=== PATIENT | female | born 1985 | race Caucasian/White ===

== ENCOUNTER 2016-12-12 15:01 | Observation (INO) | payer OTHER ==
[2016-12-12] MEDS ORDERED: HYDROmorphone 1 MG/ML 1 ML SYRINGE IVP STA (16:23)
[2016-12-12] MEDS ORDERED: SODIUM CHLORIDE 0.9% 1,000 ML IV STA ×2 (16:23)
[2016-12-12] MEDS ORDERED: ONDANSETRON 4 MG/2 ML VIAL IVP STA (16:23)
--- NOTE | 2016-12-12 16:31 | ED ---
General Adult HPI <Asim Hurley - Last Filed: 12/12/16 18:05> - General Source: patient, RN notes reviewed Mode of arrival: ambulatory Limitations: no limitations <Tyrone Samano - Last Filed: 12/12/16 18:09> - General Chief complaint: Abdominal Pain Stated complaint: ulcercollits-oral pain Time Seen by Provider: 12/12/16 16:16 - History of Present Illness Initial comments: Patient is a 31-year-old female with significant past medical history for ulcerative colitis, who presents emergency room today with a chief complaint of abdominal pain over the last 10 days. She does admit the past 3 days the pain has increased. She states it is a little different than typical as it is located on the right side. She states she's feeling the right upper quadrant. She does admit that it's worse after eating. Patient also admits that she's had some numbness to lift her hands bilaterally that she noticed when she lays down over the last 3 days. States this is happening at night which time sleeping. Denies any numbness or tingling at this time. Patient also admits to increased dental pain. She does admit that she has a fractured tooth of tooth #18. She states she does have a wisdom tooth coming in behind and believes that is pushing causing increased pain. Patient denies any other complaints or symptoms at this time. Patient denies any recent fever, chills, shortness of breath, chest pain, back pain, vomiting, numbness or tingling, dysuria or hematuria, constipation or diarrhea, headaches or visual changes, or any other complaints. (Tyrone Samano) - Related Data Home Medications Medication Instructions Recorded Confirmed Bisoprolol-Hctz 5-6.25 mg [Ziac 1 tab PO DAILY 12/12/16 12/12/16 5-6.25] Sertraline HCl [Zoloft] 25 mg PO DAILY 12/12/16 12/12/16 clonazePAM [KlonoPIN] 0.5 mg PO BID PRN 12/12/16 12/12/16 Allergies Allergy/AdvReac Type Severity Reaction Status Date / Time No Known Allergies Allergy Verified 12/12/16 16:33 Review of Systems ROS Other: All systems not noted in ROS Statement are negative. <Asim Hurley - Last Filed: 12/12/16 18:05> ROS Other: All systems not noted in ROS Statement are negative. <Tyrone Samano - Last Filed: 12/12/16 18:09> ROS Statement: Those systems with pertinent positive or pertinent negative responses have been documented in the HPI. Past Medical History Past Medical History: GI Bleed, Hypertension, Syncope Additional Past Medical History / Comment(s): ulcerative colitis, anxiety, uti, History of Any Multi-Drug Resistant Organisms: None Reported Past Surgical History: Adenoidectomy Additional Past Surgical History / Comment(s): COLONOSCOPY , BIRTHMARK REMOVED LT HAND Past Anesthesia/Blood Transfusion Reactions: No Reported Reaction Past Psychological History: ADD/ADHD, Anxiety Additional Psychological History / Comment(s): not presently taking medication for this Smoking Status: Never smoker Past Alcohol Use History: Occasional Additional Past Alcohol Use History / Comment(s): Patient states she is a lifelong nonsmoker. She states she drinks occ on weekends no more than 7 drinks for the week. She is also using multiple different prescription medications but no street drugs currently although she has tried crack in the past. She is currently unemployed.lives with her grandfather. Past Drug Use History: None Reported - Past Family History Father Family Medical History: No Reported History Additional Family Medical History / Comment(s): Father is 50 years of age and healthy. Mother Family Medical History: No Reported History Additional Family Medical History / Comment(s): Mother is 50 years of age and healthy. Patient has 1 brother and 4 sisters that are healthy. <Tyrone Samano - Last Filed: 12/12/16 18:09> General Exam <Asim Hurley - Last Filed: 12/12/16 18:05> Limitations: no limitations <Tyrone Samano - Last Filed: 12/12/16 18:09> - General Exam Comments Initial Comments: General: The patient is awake and alert, in no distress, and does not appear acutely ill. Eye: Pupils are equal, round and reactive to light, extra-ocular movements are intact. No nystagmus. There is normal conjunctiva bilaterally. No signs of icterus. Ears, nose, mouth and throat: There are moist mucous membranes and no oral lesions. Patient does have a fractured tooth of tooth #18. Patient does have was in teeth #17 and pushing through the gumline. Tender to palpation in these areas. No sign of abscess. No drainage or discharge. Neck: The neck is supple, there is no tenderness or JVD. Cardiovascular: There is a regular rate and rhythm. No murmur, rub or gallop is appreciated. Respiratory: Lungs are clear to auscultation, respirations are non-labored, breath sounds are equal. No wheezes, stridor, rales, or rhonchi. Gastrointestinal: Normal appearance of abdomen. Normal bowel sounds. Abdomen soft on palpation. Patient does have tenderness in the right upper quadrant. No rebound tenderness. No guarding. No CVA tenderness. Musculoskeletal: Normal ROM, no tenderness. Strength 5/5. Sensation intact. Pulses equal bilaterally 2+. Neurological: A&O x 3. CN II-XII intact, There are no obvious motor or sensory deficits. Coordination appears grossly intact. Speech is normal. Skin: Skin is warm and dry and no rashes or lesions are noted. Psychiatric: Cooperative, appropriate mood & affect, normal judgment. (Tyrone Samano) Medical Decision Making - Lab Data Result diagrams: 12/12/16 16:55 12/12/16 16:55 <Asim Hurley - Last Filed: 12/12/16 18:05> - Lab Data Result diagrams: 12/12/16 16:55 12/12/16 16:55 <Tyrone Samano - Last Filed: 12/12/16 18:09> - Medical Decision Making Medical decision-making. The patient reports having right upper quadrant pain radiates around the right flank for the past 10 days much worse for the past 3 days. Aggravated by greasy fatty foods. Nausea but no vomiting. She has not noticed any change in the color of her urine or stool. Patient states she's never looked. She is otherwise afebrile. The patient's ultrasound shows a gallbladder before stones and sludge. With the common bile duct dilated to 1.0. The patient's labs show white count 7.5 hemoglobin 14 hematocrit of 43 with a potassium 4.7. BUN 11 creatinine 1.1 the GFR 57. Total bilirubin 0.7. AST ALT are mildly elevated. I examined the patient and she is tender in the right upper quadrant. Positive Forte sign. I discussed the case with Dr. Dr. Dang on-call for Dr. Wolff. Patient be admitted to Dr. Dr. Dang. Dr. Hurley (Asim Hurley) - Lab Data Lab Results 12/12/16 12/12/16 12/12/16 Range/Units 16:55 16:55 17:48 WBC 7.5 (3.8-10.6) k/uL RBC 4.59 (3.80-5.40) m/uL Hgb 14.1 (11.4-16.0) gm/dL Hct 43.6 (34.0-46.0) % MCV 95.0 (80.0-100.0) fL MCH 30.8 (25.0-35.0) pg MCHC 32.4 (31.0-37.0) g/dL RDW 12.3 (11.5-15.5) % Plt Count 284 (150-450) k/uL Neutrophils % 79 % Lymphocytes % 13 % Monocytes % 6 % Eosinophils % 1 % Basophils % 0 % Neutrophils # 5.9 (1.3-7.7) k/uL Lymphocytes # 1.0 (1.0-4.8) k/uL Monocytes # 0.4 (0-1.0) k/uL Eosinophils # 0.1 (0-0.7) k/uL Basophils # 0.0 (0-0.2) k/uL Sodium 139 (137-145) mmol/L Potassium 4.7 (3.5-5.1) mmol/L Chloride 107 (98-107) mmol/L Carbon Dioxide 23 (22-30) mmol/L Anion Gap 9 mmol/L BUN 11 (7-17) mg/dL Creatinine 1.10 H (0.52-1.04) mg/dL Est GFR (MDRD) Af Amer >60 (>60 ml/min/1.73 sqM) Est GFR (MDRD) Non-Af 57 (>60 ml/min/1.73 sqM) Glucose 94 (74-99) mg/dL Calcium 9.8 (8.4-10.2) mg/dL Total Bilirubin 0.5 (0.2-1.3) mg/dL AST 42 H (14-36) U/L ALT 62 H (9-52) U/L Alkaline Phosphatase 75 (38-126) U/L Total Protein 7.1 (6.3-8.2) g/dL Albumin 4.2 (3.5-5.0) g/dL Amylase <30 L (30-110) U/L Lipase 152 (23-300) U/L Urine Color Yellow Urine Appearance Clear (Clear) Urine pH 7.0 (5.0-8.0) Ur Specific [place] 1.010 (1.001-1.035) Urine Protein Negative (Negative) Urine Glucose (UA) Negative (Negative) Urine Ketones Negative (Negative) Urine Blood Negative (Negative) Urine Nitrate Negative (Negative) Urine Bilirubin Negative (Negative) Urine Urobilinogen <2.0 (<2.0) mg/dL Ur Leukocyte Esterase Large H (Negative) Urine RBC <1 (0-5) /hpf Urine WBC 2 (0-5) /hpf Ur Squamous Epith Cells <1 (0-4) /hpf Disposition <Asim Hurley - Last Filed: 12/12/16 18:05> Time of Disposition: 18:09 <Tyrone Samano - Last Filed: 12/12/16 18:09> Clinical Impression: Acute cholecystitis Disposition: ADMITTED IP TO THIS HOSP Condition: Good
[2016-12-12 17:20] LABS: Basophils % (A) 0 %; CH 31.7; CHCM 33.5; Eosinophils # (A) 0.1 k/uL (0-0.7); Eosinophils % (A) 1 %; HCT 43.6 % (34.0-46.0); HDW 2.51; HGB 14.1 gm/dL (11.4-16.0); Luc % (Auto) 1; Lymphocytes % (A) 13 %; MCH 30.8 pg (25.0-35.0); MCHC 32.4 g/dL (31.0-37.0); Monocytes # (A) 0.4 k/uL (0-1.0); Monocytes % (A) 6 %; Neutrophils # (A) 5.9 k/uL (1.3-7.7); Neutrophils % (A) 79 %; RBC 4.59 m/uL (3.80-5.40); RDW 12.3 % (11.5-15.5); WBC 7.5 k/uL (3.8-10.6); WBC (Perox) 7.53
[2016-12-12 17:30] LABS: ALT 62 U/L (9-52); AST 42 U/L (14-36); Alkaline Phosphatase 75 U/L (38-126); Amylase <30 U/L (30-110); Anion Gap 9 mmol/L; Blood Urea Nitrogen 11 mg/dL (7-17); Calcium 9.8 mg/dL (8.4-10.2); Carbon Dioxide 23 mmol/L (22-30); Chloride 107 mmol/L (98-107); Glucose 94 mg/dL (74-99); Non-African American GFR(MDRD) 57 (>60 ml/min/1.73 sqM); Potassium 4.7 mmol/L (3.5-5.1); Sodium 139 mmol/L (137-145); Total Bilirubin 0.5 mg/dL (0.2-1.3); Total Protein 7.1 g/dL (6.3-8.2)
--- NOTE | 2016-12-12 17:44 | XR ---
EXAMINATION TYPE: XR KUB DATE OF EXAM: 12/12/2016 5:20 PM CLINICAL HISTORY: Right upper quadrant pain radiating into right back. TECHNIQUE: 2 upright KUB images of the abdomen are obtained. COMPARISON: Abdominal x-ray March 28, 2016. CT abdomen and pelvis December 14, 2015. Knee FINDINGS: There is some paucity of bowel gas. Visualized gas is noted in nondistended small and larg e bowel loops throughout the abdomen and pelvis. There is no visceromegaly, pneumoperitoneum, or abn ormal calcification appreciated. Small calculi on prior CT are too small to see on plain films. The lung bases are clear and the osseous structures are intact. IMPRESSION: Overall nonspecific strongly favor nonobstructive bowel gas pattern.
--- NOTE | 2016-12-12 17:57 | US ---
EXAMINATION TYPE: US abdomen limited DATE OF EXAM: 12/12/2016 5:38 PM COMPARISON: CT abdomen and pelvis December 14, 2015 CLINICAL HISTORY: Pain. RUQ pain, nausea, loss of appetite EXAM MEASUREMENTS: Liver Length: 15.8 cm Gallbladder Wall: 0.2 cm CBD: 1.0 cm Right Kidney: 9.8 x 4.5 x 4.7 cm TECHNOLOGIST IMPRESSION: Pancreas: obscured by overlying bowel Liver: visualized portions appear wnl Gallbladder: filled with gallstones and sludge Evidence for sonographic Forte's sign: yes CBD: dilated Right Kidney: no evidence of hydronephrosis or mass Pancreas is obscured by overlying bowel gas. Gallbladder has shadowing mobile gallstones as well as h yperechoic material felt to reflect gallbladder sludge redemonstrated. There is no pericholecystic fl uid collection or abnormal gallbladder wall thickening. Common bile duct is dilated but appeared dila len up to [address] IMPRESSION: Gallbladder sludge and gallstones redemonstrated without definitive secondary ultrasound evidence for acute cholecystitis. Inpatient with right upper quadrant pain and sonographic Forte's s ign however it cannot be entirely excluded. Consider further investigation with HIDA scan or surgical exploration. Mild chronic dilatation of common bile duct noted, significance uncertain.
[2016-12-12 17:58] LABS: Appearance,Urine Clear (Clear); Bilirubin,Urine Negative (Negative); Glucose,Urine (UA) Negative (Negative); Ketones,Urine Negative (Negative); Leukocyte Esterase,Urine Large (Negative); Nitrite,Urine Negative (Negative); Particle Count 2145; Protein,Urine Negative (Negative); RBC,Urine <1 /hpf (0-5); Squamous Epithelial Cell,Urine <1 /hpf (0-4); UA Billing (MACRO vs. MICRO) MICRO; Urobilinogen,Urine <2.0 mg/dL (<2.0); WBC,Urine 2 /hpf (0-5)
[2016-12-12] MEDS ORDERED: SODIUM CHLORIDE 0.9% 1,000 ML IV ONE (18:05)
[2016-12-12] MEDS ORDERED: ONDANSETRON 4 MG/2 ML VIAL IVP PRN (18:05)
[2016-12-12] MEDS ORDERED: ACETAMINOPHEN TAB 325 MG TAB PO PRN (18:05)
[2016-12-12] MEDS ORDERED: NALOXONE 0.4 MG/ML 1 ML VIAL IV PRN (18:05)
[2016-12-12] MEDS ORDERED: PIPERACILLIN-TAZOBACTAM 3.375 GM in DEXTROSE/WATER 1 50ML.BAG IVPB STA (18:08)
[2016-12-12] MEDS: HYDROmorphone 1 MG/ML 1 ML SYRINGE IV PRN (20:41)
[2016-12-12 23:22] VITALS: BMI 29.9
[2016-12-12] MEDS: PIPERACILLIN-TAZOBACTAM 3.375 GM in DEXTROSE/WATER 1 50ML.BAG IVPB SCH (23:25)
[2016-12-13] MEDS: HYDROmorphone 1 MG/ML 1 ML SYRINGE IV PRN ×7 (00:13→22:51)
--- NOTE | 2016-12-13 07:26 | P.GSHP ---
History of Present Illness H&P Date: 12/13/16 Chief Complaint: Right upper quadrant abdominal pain The patient is a 30-year-old white female who states she's had some intermittent pain in the upper abdomen mostly right side for about 10 days but worse over the last 3 days. The pain radiates to the back the. Worse after meals especially fried greasy foods. Some nausea. Ultrasound showed multiple gallstones. Positive Forte sign. Past history positive for ulcerative colitis depression anxiety disorder. Medications as listed including antidepressant. No medications for her colitis. Had colonoscopies in the past. Social history patient is single. Lives with grandparents. Drinks alcohol socially 5-7 drinks a week. Denies smoking. ALLERGIES none known. Family history essentially negative. Systems review otherwise negative. Has some dental pain. No cough hemoptysis or chest symptoms. No major change in her bowel habits. No urinary symptoms. No vaginal discharge or bleeding. Findings on examination the patient is well-built well-nourished a little overweight. Vitals and normal temperature is normal. Anicteric hydration borderline. Head and neck are normal. Abdomen abdomen is soft with mild to moderate tenderness in the right upper quadrant with some voluntary guarding but no rebound. No mass or organomegaly noted. Heart regular rhythm no murmurs. Lungs are clear to P&A. Extremities normal. HEALTHCARE REPRESENTATIVE intact. WBC is mildly elevated. Bilirubin in the alkaline phosphatase is normal. Impression acute cholecystitis cholelithiasis. History of ulcerative colitis. Anxiety depression disorder. Recommendation. Recommend laparoscopic cholecystectomy possible open. Informed consent was obtained the procedure having being explained to the patient including potential complication particular bleeding infection surrounding injury pain possibility of open cholecystectomy etc. she understood and agree to proceed. Past Medical History Past Medical History: GI Bleed, Hypertension, Syncope Additional Past Medical History / Comment(s): ulcerative colitis, anxiety, uti, History of Any Multi-Drug Resistant Organisms: C-DIFF Date of last positivie culture/infection: 2003 MDRO Source:: cc Past Surgical History: Adenoidectomy Additional Past Surgical History / Comment(s): COLONOSCOPY- r/t colitis , BIRTHMARK REMOVED LT HAND Past Anesthesia/Blood Transfusion Reactions: No Reported Reaction Past Psychological History: ADD/ADHD, Anxiety Additional Psychological History / Comment(s): not presently taking medication for this Smoking Status: Never smoker Past Alcohol Use History: Occasional Additional Past Alcohol Use History / Comment(s): Patient states she is a lifelong nonsmoker. She states she drinks occ on weekends no more than 7 drinks for the week. She is also using multiple different prescription medications but no street drugs currently although she has tried crack in the past. She is currently unemployed.lives with her grandfather. Past Drug Use History: None Reported - Past Family History Father Family Medical History: No Reported History Additional Family Medical History / Comment(s): Father is 50 years of age and healthy. Mother History Unknown: Yes Family Medical History: No Reported History Additional Family Medical History / Comment(s): Mother is 50 years of age and healthy. Patient has 1 brother and 4 sisters that are healthy. Medications and Allergies Home Medications Medication Instructions Recorded Confirmed Type Bisoprolol-Hctz 5-6.25 mg [Ziac 1 tab PO DAILY 12/12/16 12/12/16 History 5-6.25] Sertraline HCl [Zoloft] 25 mg PO DAILY 12/12/16 12/12/16 History clonazePAM [KlonoPIN] 0.5 mg PO BID PRN 12/12/16 12/12/16 History Allergies Allergy/AdvReac Type Severity Reaction Status Date / Time No Known Allergies Allergy Verified 12/12/16 16:33 Surgical - Exam Vital Signs Temp Pulse Resp BP Pulse Ox 97.9 F 84 18 134/96 99 12/12/16 16:01 12/12/16 16:01 12/12/16 16:01 12/12/16 16:01 12/12/16 16:01 Results - Labs 12/12/16 16:55 12/12/16 16:55
[2016-12-13 07:45] LABS: Basophils % (A) 0 %; CH 30.9; CHCM 32.2; Eosinophils # (A) 0.1 k/uL (0-0.7); Eosinophils % (A) 2 %; HCT 39.6 % (34.0-46.0); HDW 2.46; HGB 12.6 gm/dL (11.4-16.0); Luc # (Auto) 0.14; Luc % (Auto) 2; Lymphocytes # (A) 1.7 k/uL (1.0-4.8); Lymphocytes % (A) 23 %; MCH 30.6 pg (25.0-35.0); MCHC 31.8 g/dL (31.0-37.0); MCV 96.2 fL (80.0-100.0); Mean Platelet Volume 7.1; Monocytes # (A) 0.4 k/uL (0-1.0); Monocytes % (A) 6 %; Neutrophils # (A) 4.9 k/uL (1.3-7.7); Neutrophils % (A) 67 %; RBC 4.12 m/uL (3.80-5.40); RDW 12.1 % (11.5-15.5); WBC 7.2 k/uL (3.8-10.6); WBC (Perox) 7.81
[2016-12-13 07:56] LABS: ALT 55 U/L (9-52); AST 35 U/L (14-36); Alkaline Phosphatase 59 U/L (38-126); Anion Gap 7 mmol/L; Blood Urea Nitrogen 7 mg/dL (7-17); Calcium 8.5 mg/dL (8.4-10.2); Carbon Dioxide 25 mmol/L (22-30); Chloride 108 mmol/L (98-107); Glucose 86 mg/dL (74-99); Non-African American GFR(MDRD) >60 (>60 ml/min/1.73 sqM); Potassium 4.3 mmol/L (3.5-5.1); Sodium 140 mmol/L (137-145); Total Bilirubin 0.5 mg/dL (0.2-1.3); Total Protein 5.9 g/dL (6.3-8.2)
[2016-12-13] MEDS: PIPERACILLIN-TAZOBACTAM 3.375 GM in DEXTROSE/WATER 1 50ML.BAG IVPB SCH ×3 (08:01→23:33)
[2016-12-13] MEDS ORDERED: IV FLUID CONTINUATION 1,000 ML IV ONE (11:19)
[2016-12-13] MEDS ORDERED: DEXAMETHASONE SOD PHOSPHATE 4 MG/ML 1 ML VIAL IV ONE (11:41)
[2016-12-13] MEDS ORDERED: ONDANSETRON 4 MG/2 ML VIAL IVP ONE (11:42)
[2016-12-13] MEDS ORDERED: LIDOCAINE 1% INJ 10MG/ML (20 ML MDV) ONE (12:33)
[2016-12-13] MEDS ORDERED: HYDROmorphone (PF) 1 MG/ML ONE (12:33)
[2016-12-13] MEDS ORDERED: ROCURONIUM BROMIDE 10 MG/ML 10 ML VIAL IV ONE (12:33)
[2016-12-13] MEDS ORDERED: fentaNYL (PF) 50 MCG/ML 2 ML AMP ONE (12:33)
[2016-12-13] MEDS ORDERED: PROPOFOL 10 MG/ML 20 ML VIAL IV ONE (12:33)
[2016-12-13] MEDS ORDERED: NEOSTIGMINE 1 MG/ML 10 ML VIAL ONE (12:33)
[2016-12-13] MEDS ORDERED: KETOROLAC 30 MG/ML 1 ML VIAL ONE (12:33)
[2016-12-13] MEDS ORDERED: GLYCOPYRROLATE 0.2 MG/ML 2 ML VIAL ONE (12:33)
[2016-12-13] MEDS ORDERED: MIDAZOLAM 2 MG/2 ML VIAL ONE (12:33)
[2016-12-13] MEDS ORDERED: SUCCINYLCHOLINE CHLORIDE 100 MG/5 ML SYR IV ONE (12:33)
[2016-12-13] MEDS ORDERED: BUPIVACAINE (PF) 0.25% 30 ML VIAL SQ ONE ×2 (13:05→14:06)
[2016-12-13] MEDS ORDERED: SODIUM CHLORIDE 0.9% 1,000 ML IV ONE (13:08)
--- NOTE | 2016-12-13 14:25 | P.OP ---
Date of Procedure: 12/13/16 Preoperative Diagnosis: Acute cholecystitis cholelithiasis Postoperative Diagnosis: Acute and subacute cholecystitis cholelithiasis Procedure(s) Performed: Laparoscopic cholecystectomy Anesthesia: FRANTZ Surgeon: Aleksey Dang Estimated Blood Loss (ml): 50 Pathology: other (GB) Condition: stable Disposition: PACU Indications for Procedure: The patient is a 31-year-old white female with about 10 day history of persistent pain in the right upper quadrant. She eventually presented to the emergency room last night. The continued pain nausea vomiting and ultrasound evidence of multiple gallstones and a positive Forte sign slightly dilated common bile duct. Bilirubin and alkaline phosphatase however were normal. She was placed on IV antibiotics and laparoscopic cholecystectomy possible open was recommended and informed consent was obtained the procedure having being explained to her including potential complications particular bleeding infection surrounding injury continued pain wound problems etc. she understood and agree to proceed. Operative Findings: Acute and subacute cholecystitis cholelithiasis. Description of Procedure: After induction of general endotracheal anesthesia the abdominal wall was prepped with Betadine and draped. Local anesthetic Marcaine 0.5% plain was infiltrated into the skin and subcutaneous tissue just below the umbilicus where a small transverse incision was made and deepened through the very copious subcutaneous fat. The fascia was exposed infiltrated with the Marcaine and the Veress needle inserted under direct vision with a satisfactory saline drop test. The peritoneal cavity was then inflated with carbon dioxide to pressure approximately 15 mmHg. The needle was replaced with a 10 mm trocar and the laparoscope inserted. 25 mm trochars were placed in the right upper quadrant and another 5 mm trocar in the epigastrium under direct vision. Visual exploration revealed evidence of an acute cholecystitis with the omental adhesion to the gallbladder. The adhesions were lysed away the area of the neck carefully dissected after being retracted. There was subacute inflammation with thickened gallbladder wall. The cystic duct was identified , skeletonized and triply clipped and divided as was the cystic artery and a posterior branch. The gallbladder was then dissected from its bed and removed through the umbilical port site in an Endo Catch bag. There was a large stone impacted in the area of the neck of the gallbladder. Supra and infrahepatic spaces were thoroughly irrigated. A CRESCENCIO drain was placed in Freeman's pouch and brought out through the lateral port site. All trochars were then removed under direct vision CO2 evacuated. Fascial incision at the umbilicus closed with interrupted 0 Vicryl sutures and the skin with 4-0 Monocryl subcuticular sutures and Steri-Strips dressings were applied all counts were correct blood loss was about 50mls at the most. The patient was transferred to the recovery room in good and stable condition.
[2016-12-13] MEDS: HYDROmorphone 1 MG/ML 1 ML SYRINGE IVP ONE ×2 (14:41→14:52)
[2016-12-13 14:43] VITALS: RESP 16
[2016-12-13] MEDS: HYDROcodone/APAP 5-325MG 1 EACH TAB PO PRN (21:51)
[2016-12-14] MEDS: HYDROmorphone 1 MG/ML 1 ML SYRINGE IV PRN ×3 (01:53→09:35)
[2016-12-14] MEDS: HYDROcodone/APAP 5-325MG 1 EACH TAB PO PRN ×3 (03:15→12:04)
[2016-12-14] MEDS: PIPERACILLIN-TAZOBACTAM 3.375 GM in DEXTROSE/WATER 1 50ML.BAG IVPB SCH (07:43)
[2016-12-14 07:49] VITALS: BP 139/90; PULSE 75; TEMP 98.2
--- NOTE | 2016-12-14 10:56 | P.DS ---
Providers Date of admission: 12/12/16 18:42 Expected date of discharge: 12/14/16 Attending physician: Aleksey Dang Primary care physician: Jamel Clayton Patient Condition at Discharge: Good Plan - Discharge Summary New Discharge Prescriptions: Amoxic-Pot Clav 500-125 mg [Augmentin 500-125 mg] 1 tab PO Q12HR #10 tab HYDROcodone/APAP 7.5-325MG [Buckner 7.5-325] 1 tab PO Q4H PRN #20 tab PRN Reason: Pain Discharge Medication List Bisoprolol-Hctz 5-6.25 mg [Ziac 5-6.25] 1 tab PO DAILY 12/12/16 [History] Sertraline HCl [Zoloft] 25 mg PO DAILY 12/12/16 [History] clonazePAM [KlonoPIN] 0.5 mg PO BID PRN 12/12/16 [History] Amoxic-Pot Clav 500-125 mg [Augmentin 500-125 mg] 1 tab PO Q12HR #10 tab [Rx] HYDROcodone/APAP 7.5-325MG [Buckner 7.5-325] 1 tab PO Q4H PRN #20 tab 12/14/16 [Rx ] Follow up Appointment(s)/Referral(s): Aleksey Dang MD [STAFF PHYSICIAN] - 1 Week Jamel Clayton MD [Primary Care Provider] - 1 Week Activity/Diet/Wound Care/Special Instructions: Low fat diet, no heavy lifting X 1 week, may shower.
--- NOTE | 2016-12-14 10:59 | P.PN ---
Progress Note - Text Patient is a day 1 post-laparoscopic cholecystectomy for acute and subacute cholecystitis cholelithiasis. Coming along fairly well. No fever. Tolerated a breakfast. Denies nausea or vomiting. CRESCENCIO drain output is about the 10 amounts the last 8 hours serosanguineous. She is afebrile. Vitals are stable. Abdomen is soft with mild postoperative tenderness. Incisions looked fine. Satisfactory postoperative course. Recommendation DC the CRESCENCIO drain. May shower. We'll discharge her today on by mouth antibiotics namely amoxicillin twice a day and the pain. Return appointment to the office in a week. No heavy lifting or straining per week.
== END 2016-12-14 15:18 | disposition home or self-care (01) ==
LOC: EC 15:01 → INTOOBSV 18:42 → 3SUR 18:42
PROVIDERS: ADMIT Surgery; ATTEND Surgery
DX: K80.00 Calculus of gallbladder with acute cholecystitis without obstruction (principal); K51.90 Ulcerative colitis, unspecified, without complications; I10 Essential (primary) hypertension; F90.9 Attention-deficit hyperactivity disorder, unspecified type; F41.8 Other specified anxiety disorders; F32.9 Major depressive disorder, single episode, unspecified; S02.5XXA Fracture of tooth (traumatic), initial encounter for closed fracture; Z79.899 Other long term (current) drug therapy
CPT/HCPCS: 47562; 99285; 96365; 96375; 96361; 36415; 81025 ×2; 88304; 80053 ×2; 82150; 83690; 85025 ×2; 81001; 74000; 76705; G0378 ×3; J2250; J1100; J2710; J2405 ×2; J2001; J3010; J1885; J1170 ×3; J2543 ×3; J0330; J2704; 96366; 96376

== ENCOUNTER 2016-12-19 10:19 | Emergency (ER) | payer OTHER ==
[2016-12-19] MEDS ORDERED: SODIUM CHLORIDE 0.9% 1,000 ML IV STA (10:53)
[2016-12-19] MEDS ORDERED: ONDANSETRON 4 MG/2 ML VIAL IVP STA (10:54)
[2016-12-19] MEDS ORDERED: HYDROmorphone 1 MG/ML 1 ML SYRINGE IVP STA ×2 (10:54→13:51)
--- NOTE | 2016-12-19 11:19 | ED ---
Abdominal Pain HPI - General Chief Complaint: Abdominal Pain Stated Complaint: post op infection Time Seen by Provider: 12/19/16 10:48 Source: patient, RN notes reviewed Mode of arrival: ambulatory Limitations: no limitations - History of Present Illness Initial Comments: 31-year-old female presents emergency Department with chief complaint of abdominal pain. Patient states she is status post cholecystectomy by Dr. Walton last Tuesday or Tuesday. Patient states that she that she was is having healing pain but states pain is worse and states that now she has shortness of breath. She states it hurts to take a deep breath in her abdomen slightly into her chest. Patient denies any palpitations. Patient denies fever, chills. She states she's had some ongoing nausea. Patient was discharged with pain medication states it is helping some. - Related Data Home Medications Medication Instructions Recorded Confirmed Bisoprolol-Hctz 5-6.25 mg [Ziac 1 tab PO DAILY 12/12/16 12/19/16 5-6.25] Sertraline HCl [Zoloft] 25 mg PO DAILY 12/12/16 12/19/16 clonazePAM [KlonoPIN] 0.5 mg PO BID PRN 12/12/16 12/19/16 Balsalazide Disodium [Colazal] 2,250 mg PO AC-TID 12/19/16 12/19/16 Previous Rx's Medication Instructions Recorded Amoxic-Pot Clav 500-125 mg 1 tab PO Q12HR #10 tab 12/14/16 [Augmentin 500-125 mg] HYDROcodone/APAP 7.5-325MG [[place] 1 tab PO Q4H PRN #20 tab 12/14/16 7.5-325] Hydrocodone/Acetaminophen [[place] 1 tab PO Q6HR PRN #10 tab 12/19/16 5-325] Allergies Allergy/AdvReac Type Severity Reaction Status Date / Time No Known Allergies Allergy Verified 12/19/16 11:17 Review of Systems ROS Statement: Those systems with pertinent positive or pertinent negative responses have been documented in the HPI. ROS Other: All systems not noted in ROS Statement are negative. Past Medical History Past Medical History: GI Bleed, Hypertension, Syncope Additional Past Medical History / Comment(s): ulcerative colitis, anxiety, uti, History of Any Multi-Drug Resistant Organisms: None Reported Date of last positivie culture/infection: none MDRO Source:: none Past Surgical History: Adenoidectomy, Cholecystectomy Additional Past Surgical History / Comment(s): COLONOSCOPY- r/t colitis , [facility] REMOVED LT HAND Past Anesthesia/Blood Transfusion Reactions: No Reported Reaction Past Psychological History: ADD/ADHD, Anxiety Additional Psychological History / Comment(s): not presently taking medication for this Smoking Status: Never smoker Past Alcohol Use History: Occasional Additional Past Alcohol Use History / Comment(s): Patient states she is a lifelong nonsmoker. She states she drinks occ on weekends no more than 7 drinks for the week. She is also using multiple different prescription medications but no street drugs currently although she has tried crack in the past. She is currently unemployed.lives with her grandfather. Past Drug Use History: None Reported - Past Family History Father Family Medical History: No Reported History Additional Family Medical History / Comment(s): Father is 50 years of age and healthy. Mother History Unknown: Yes Family Medical History: No Reported History Additional Family Medical History / Comment(s): Mother is 50 years of age and healthy. Patient has 1 brother and 4 sisters that are healthy. General Exam Limitations: no limitations General appearance: alert, in no apparent distress Head exam: Present: atraumatic, normocephalic, normal inspection Neck exam: Present: normal inspection. Absent: tenderness, meningismus, lymphadenopathy Respiratory exam: Present: normal lung sounds bilaterally. Absent: respiratory distress, wheezes, rales, rhonchi, stridor Cardiovascular Exam: Present: regular rate, normal rhythm, normal heart sounds. Absent: systolic murmur, diastolic murmur, rubs, gallop, clicks GI/Abdominal exam: Present: soft, tenderness (Moderate quadrant tenderness, incisions are healing well with no erythema no apparent drainage), normal bowel sounds. Absent: distended, guarding, rebound, rigid Back exam: Absent: CVA tenderness (R), CVA tenderness (L) Skin exam: Present: warm, dry, intact, normal color. Absent: rash Course Vital Signs 12/19/16 12/19/16 10:41 11:23 Temperature 99.3 F Pulse Rate 107 H Respiratory 17 18 Rate Blood Pressure 143/86 O2 Sat by Pulse 99 Oximetry Medical Decision Making - Medical Decision Making 31-year-old female presented emergency department for abdominal pain. Status post cholecystomy. Patient has reactive colitis. Patient has negative CT of the chest for PE. Patient will be discharged with pain medication advised to see Dr. Dang in one to 2 days. - Lab Data Result diagrams: 12/19/16 11:30 12/19/16 11:30 Lab Results 12/19/16 12/19/16 12/19/16 Range/Units 11:30 11:30 11:30 WBC 6.0 (3.8-10.6) k/uL RBC 4.58 (3.80-5.40) m/uL Hgb 14.1 (11.4-16.0) gm/dL Hct 42.9 (34.0-46.0) % MCV 93.7 (80.0-100.0) fL MCH 30.8 (25.0-35.0) pg MCHC 32.9 (31.0-37.0) g/dL RDW 12.1 (11.5-15.5) % Plt Count 335 (150-450) k/uL Neutrophils % 75 % Lymphocytes % 16 % Monocytes % 6 % Eosinophils % 2 % Basophils % 0 % Neutrophils # 4.5 (1.3-7.7) k/uL Lymphocytes # 0.9 L (1.0-4.8) k/uL Monocytes # 0.4 (0-1.0) k/uL Eosinophils # 0.1 (0-0.7) k/uL Basophils # 0.0 (0-0.2) k/uL D-Dimer 2.29 H (<0.60) mg/L FEU Sodium 142 (137-145) mmol/L Potassium 3.9 (3.5-5.1) mmol/L Chloride 106 (98-107) mmol/L Carbon Dioxide 25 (22-30) mmol/L Anion Gap 11 mmol/L BUN 5 L (7-17) mg/dL Creatinine 0.90 (0.52-1.04) mg/dL Est GFR (MDRD) Af Amer >60 (>60 ml/min/1.73 sqM) Est GFR (MDRD) Non-Af >60 (>60 ml/min/1.73 sqM) Glucose 103 H (74-99) mg/dL Calcium 9.8 (8.4-10.2) mg/dL Total Bilirubin 0.7 (0.2-1.3) mg/dL AST 24 (14-36) U/L ALT 46 (9-52) U/L Alkaline Phosphatase 80 (38-126) U/L Total Protein 7.5 (6.3-8.2) g/dL Albumin 4.3 (3.5-5.0) g/dL Amylase 32 (30-110) U/L Lipase 151 (23-300) U/L Urine Color Urine Appearance (Clear) Urine pH (5.0-8.0) Ur Specific [place] (1.001-1.035) Urine Protein (Negative) Urine Glucose (UA) (Negative) Urine Ketones (Negative) Urine Blood (Negative) Urine Nitrate (Negative) Urine Bilirubin (Negative) Urine Urobilinogen (<2.0) mg/dL Ur Leukocyte Esterase (Negative) Urine RBC (0-5) /hpf Urine WBC (0-5) /hpf Ur Squamous Epith Cells (0-4) /hpf Urine Mucus (None) /hpf Urine HCG, Qual (Not Detectd) 12/19/16 12/19/16 Range/Units 11:35 11:35 WBC (3.8-10.6) k/uL RBC (3.80-5.40) m/uL Hgb (11.4-16.0) gm/dL Hct (34.0-46.0) % MCV (80.0-100.0) fL MCH (25.0-35.0) pg MCHC (31.0-37.0) g/dL RDW (11.5-15.5) % Plt Count (150-450) k/uL Neutrophils % % Lymphocytes % % Monocytes % % Eosinophils % % Basophils % % Neutrophils # (1.3-7.7) k/uL Lymphocytes # (1.0-4.8) k/uL Monocytes # (0-1.0) k/uL Eosinophils # (0-0.7) k/uL Basophils # (0-0.2) k/uL D-Dimer (<0.60) mg/L FEU Sodium (137-145) mmol/L Potassium (3.5-5.1) mmol/L Chloride (98-107) mmol/L Carbon Dioxide (22-30) mmol/L Anion Gap mmol/L BUN (7-17) mg/dL Creatinine (0.52-1.04) mg/dL Est GFR (MDRD) Af Amer (>60 ml/min/1.73 sqM) Est GFR (MDRD) Non-Af (>60 ml/min/1.73 sqM) Glucose (74-99) mg/dL Calcium (8.4-10.2) mg/dL Total Bilirubin (0.2-1.3) mg/dL AST (14-36) U/L ALT (9-52) U/L Alkaline Phosphatase (38-126) U/L Total Protein (6.3-8.2) g/dL Albumin (3.5-5.0) g/dL Amylase (30-110) U/L Lipase (23-300) U/L Urine Color Yellow Urine Appearance Clear (Clear) Urine pH 5.5 (5.0-8.0) Ur Specific [place] 1.011 (1.001-1.035) Urine Protein Negative (Negative) Urine Glucose (UA) Negative (Negative) Urine Ketones Negative (Negative) Urine Blood Moderate H (Negative) Urine Nitrate Negative (Negative) Urine Bilirubin Negative (Negative) Urine Urobilinogen <2.0 (<2.0) mg/dL Ur Leukocyte Esterase Large H (Negative) Urine RBC 3 (0-5) /hpf Urine WBC 4 (0-5) /hpf Ur Squamous Epith Cells 3 (0-4) /hpf Urine Mucus Rare H (None) /hpf Urine HCG, Qual Not Detected (Not Detectd) Disposition Clinical Impression: Colitis, Abdominal pain Disposition: ADMITTED IP TO THIS HOSP Condition: Stable Instructions: Abdominal Pain (ED) Additional Instructions: Please return to the Emergency Department if symptoms worsen or any other concerns. Prescriptions: Hydrocodone/Acetaminophen [[place] 5-325] 1 tab PO Q6HR PRN #10 tab PRN Reason: Pain Time of Disposition: 14:11
[2016-12-19 11:39] LABS: Basophils % (A) 0 %; CH 31.2; CHCM 33.4; Eosinophils # (A) 0.1 k/uL (0-0.7); Eosinophils % (A) 2 %; HCT 42.9 % (34.0-46.0); HGB 14.1 gm/dL (11.4-16.0); Luc % (Auto) 2; Lymphocytes # (A) 0.9 k/uL (1.0-4.8); Lymphocytes % (A) 16 %; MCH 30.8 pg (25.0-35.0); MCHC 32.9 g/dL (31.0-37.0); MCV 93.7 fL (80.0-100.0); Monocytes # (A) 0.4 k/uL (0-1.0); Monocytes % (A) 6 %; Neutrophils # (A) 4.5 k/uL (1.3-7.7); Neutrophils % (A) 75 %; RBC 4.58 m/uL (3.80-5.40); RDW 12.1 % (11.5-15.5); WBC (Perox) 6.23
[2016-12-19 11:49] LABS: ALT 46 U/L (9-52); AST 24 U/L (14-36); Alkaline Phosphatase 80 U/L (38-126); Amylase 32 U/L (30-110); Anion Gap 11 mmol/L; Blood Urea Nitrogen 5 mg/dL (7-17); Calcium 9.8 mg/dL (8.4-10.2); Carbon Dioxide 25 mmol/L (22-30); Chloride 106 mmol/L (98-107); Glucose 103 mg/dL (74-99); Non-African American GFR(MDRD) >60 (>60 ml/min/1.73 sqM); Potassium 3.9 mmol/L (3.5-5.1); Sodium 142 mmol/L (137-145); Total Bilirubin 0.7 mg/dL (0.2-1.3); Total Protein 7.5 g/dL (6.3-8.2)
[2016-12-19 11:52] LABS: Appearance,Urine Clear (Clear); Bilirubin,Urine Negative (Negative); Glucose,Urine (UA) Negative (Negative); Ketones,Urine Negative (Negative); Leukocyte Esterase,Urine Large (Negative); Mucus,Urine Rare /hpf; Nitrite,Urine Negative (Negative); PH, Urine 5.5 (5.0-8.0); Particle Count 3300; Protein,Urine Negative (Negative); RBC,Urine 3 /hpf (0-5); Specific Gravity,Urine 1.011 (1.001-1.035); Squamous Epithelial Cell,Urine 3 /hpf (0-4); UA Billing (MACRO vs. MICRO) MICRO; Urobilinogen,Urine <2.0 mg/dL (<2.0); WBC,Urine 4 /hpf (0-5)
[2016-12-19] MEDS ORDERED: RX INFO: IV CONTRAST WAS GIVEN 1 EACH MISC MISCELLANE PRN (12:01)
--- NOTE | 2016-12-19 13:48 | CT ---
INDICATION: Pain TECHNIQUE: Multiple, contiguous 2.5 mm axial cuts of the chest are obtained following the administration of IV contrast. High resolution axial image as well as, sagittal and coronal reformatted images are available. COMPARISON: None FINDINGS: No pulmonary embolus is identified. The aorta is within normal limits, no aneurysm or dissection. The cardiomediastinal structures are normal. No adenopathy or effusions. Mild bilateral lower lobe subsegmental atelectasis. Otherwise, the lungs are clear. The osseous structures are unremarkable. IMPRESSION: No evidence of pulmonary embolus. CTDI: 11.5 mGy DLP: 332.6 mGycm
--- NOTE | 2016-12-19 14:04 | CT ---
ADDENDUM - Added by Irving Palumbo M.D. on 12/19/2016 2:19 PM (-08:00) CTDI: 18.5 mGy DLP: 1002.5 mGycm INDICATION: Pain TECHNIQUE: Multiple, contiguous axial cuts of the abdomen and pelvis are obtained from the lung bases to the ischial tuberosities. Sagittal and coronal reformatted images are available. COMPARISON: CT dated 12/14/15 FINDINGS: The lung bases are clear. The liver and spleen are normal in size and free of mass lesions. Status post cholecystectomy with fluid seen at the gallbladder fossa, no organized fluid collection. The bile ducts and pancreas are normal. The adrenal gland are unremarkable. 2-3 mm nonobstructing left renal pyramidal calcification. The kidneys are normal in size and contour. No lesions or hydronephrosis. Thickening of the ascending colon and proximal transverse colon may represent reactive colitis. The appendix is unremarkable, as is the rest of the GI tract. Aorta is normal caliber. No adenopathy or extraluminal air. Degenerative changes of the lumbar spine. The osseous structures are otherwise normal. IMPRESSION: 1. Thickening of the ascending colon and proximal transverse colon may represent reactive colitis. Status post cholecystectomy with fluid seen at the gallbladder fossa, no organized fluid collection. 2. 2-3 mm nonobstructing left renal pyramidal calcification. Critical Value Communications 12/19/16 13:54 Call Doctor Regarding Other, called JENNIFER Billy in ER on 12/19 13:53 (-05:00)
[2016-12-19 14:24] VITALS: BP 145/89; PULSE 83; RESP 16; TEMP 97.6
--- NOTE | 2016-12-19 14:25 | ED ---
Medical Decision Making - Lab Data Result diagrams: 12/19/16 11:30 12/19/16 11:30 Lab Results 12/19/16 12/19/16 12/19/16 Range/Units 11:30 11:30 11:30 WBC 6.0 (3.8-10.6) k/uL RBC 4.58 (3.80-5.40) m/uL Hgb 14.1 (11.4-16.0) gm/dL Hct 42.9 (34.0-46.0) % MCV 93.7 (80.0-100.0) fL MCH 30.8 (25.0-35.0) pg MCHC 32.9 (31.0-37.0) g/dL RDW 12.1 (11.5-15.5) % Plt Count 335 (150-450) k/uL Neutrophils % 75 % Lymphocytes % 16 % Monocytes % 6 % Eosinophils % 2 % Basophils % 0 % Neutrophils # 4.5 (1.3-7.7) k/uL Lymphocytes # 0.9 L (1.0-4.8) k/uL Monocytes # 0.4 (0-1.0) k/uL Eosinophils # 0.1 (0-0.7) k/uL Basophils # 0.0 (0-0.2) k/uL D-Dimer 2.29 H (<0.60) mg/L FEU Sodium 142 (137-145) mmol/L Potassium 3.9 (3.5-5.1) mmol/L Chloride 106 (98-107) mmol/L Carbon Dioxide 25 (22-30) mmol/L Anion Gap 11 mmol/L BUN 5 L (7-17) mg/dL Creatinine 0.90 (0.52-1.04) mg/dL Est GFR (MDRD) Af Amer >60 (>60 ml/min/1.73 sqM) Est GFR (MDRD) Non-Af >60 (>60 ml/min/1.73 sqM) Glucose 103 H (74-99) mg/dL Calcium 9.8 (8.4-10.2) mg/dL Total Bilirubin 0.7 (0.2-1.3) mg/dL AST 24 (14-36) U/L ALT 46 (9-52) U/L Alkaline Phosphatase 80 (38-126) U/L Total Protein 7.5 (6.3-8.2) g/dL Albumin 4.3 (3.5-5.0) g/dL Amylase 32 (30-110) U/L Lipase 151 (23-300) U/L Urine Color Urine Appearance (Clear) Urine pH (5.0-8.0) Ur Specific [place] (1.001-1.035) Urine Protein (Negative) Urine Glucose (UA) (Negative) Urine Ketones (Negative) Urine Blood (Negative) Urine Nitrate (Negative) Urine Bilirubin (Negative) Urine Urobilinogen (<2.0) mg/dL Ur Leukocyte Esterase (Negative) Urine RBC (0-5) /hpf Urine WBC (0-5) /hpf Ur Squamous Epith Cells (0-4) /hpf Urine Mucus (None) /hpf Urine HCG, Qual (Not Detectd) 12/19/16 12/19/16 Range/Units 11:35 11:35 WBC (3.8-10.6) k/uL RBC (3.80-5.40) m/uL Hgb (11.4-16.0) gm/dL Hct (34.0-46.0) % MCV (80.0-100.0) fL MCH (25.0-35.0) pg MCHC (31.0-37.0) g/dL RDW (11.5-15.5) % Plt Count (150-450) k/uL Neutrophils % % Lymphocytes % % Monocytes % % Eosinophils % % Basophils % % Neutrophils # (1.3-7.7) k/uL Lymphocytes # (1.0-4.8) k/uL Monocytes # (0-1.0) k/uL Eosinophils # (0-0.7) k/uL Basophils # (0-0.2) k/uL D-Dimer (<0.60) mg/L FEU Sodium (137-145) mmol/L Potassium (3.5-5.1) mmol/L Chloride (98-107) mmol/L Carbon Dioxide (22-30) mmol/L Anion Gap mmol/L BUN (7-17) mg/dL Creatinine (0.52-1.04) mg/dL Est GFR (MDRD) Af Amer (>60 ml/min/1.73 sqM) Est GFR (MDRD) Non-Af (>60 ml/min/1.73 sqM) Glucose (74-99) mg/dL Calcium (8.4-10.2) mg/dL Total Bilirubin (0.2-1.3) mg/dL AST (14-36) U/L ALT (9-52) U/L Alkaline Phosphatase (38-126) U/L Total Protein (6.3-8.2) g/dL Albumin (3.5-5.0) g/dL Amylase (30-110) U/L Lipase (23-300) U/L Urine Color Yellow Urine Appearance Clear (Clear) Urine pH 5.5 (5.0-8.0) Ur Specific [place] 1.011 (1.001-1.035) Urine Protein Negative (Negative) Urine Glucose (UA) Negative (Negative) Urine Ketones Negative (Negative) Urine Blood Moderate H (Negative) Urine Nitrate Negative (Negative) Urine Bilirubin Negative (Negative) Urine Urobilinogen <2.0 (<2.0) mg/dL Ur Leukocyte Esterase Large H (Negative) Urine RBC 3 (0-5) /hpf Urine WBC 4 (0-5) /hpf Ur Squamous Epith Cells 3 (0-4) /hpf Urine Mucus Rare H (None) /hpf Urine HCG, Qual Not Detected (Not Detectd) Disposition Clinical Impression: Colitis, Abdominal pain Disposition: HOME SELF-CARE Condition: Stable Instructions: Abdominal Pain (ED) Additional Instructions: Please return to the Emergency Department if symptoms worsen or any other concerns. Prescriptions: Hydrocodone/Acetaminophen [[place] 5-325] 1 tab PO Q6HR PRN #10 tab PRN Reason: Pain Referrals: Jamel Clayton MD [Primary Care Provider] - 1-2 days
== END 2016-12-19 14:47 | disposition home or self-care (01) ==
LOC: EC 10:19
DX: K52.9 Noninfective gastroenteritis and colitis, unspecified (principal); I10 Essential (primary) hypertension; F41.9 Anxiety disorder, unspecified; Z90.49 Acquired absence of other specified parts of digestive tract
CPT/HCPCS: 36415; 85379; 80053; 82150; 83690; 85025; 81001; 81025; 87040; 71275; 74177; 96374; 96375; 96376; 96361 ×2; 99284; Q9967; J2405; J1170

== ENCOUNTER → 2016-12-24 | Outpatient (CLI) | payer OTHER ==
[2016-12-24 11:25] LABS: EKG EKG PERFORMED
[2016-12-24 11:46] LABS: Basophils % (A) 1 %; CH 30.8; CHCM 32.5; Eosinophils # (A) 0.3 k/uL (0-0.7); Eosinophils % (A) 4 %; HCT 43.2 % (34.0-46.0); HDW 2.43; HGB 13.7 gm/dL (11.4-16.0); Luc # (Auto) 0.15; Luc % (Auto) 2; Lymphocytes # (A) 1.4 k/uL (1.0-4.8); Lymphocytes % (A) 22 %; MCH 30.1 pg (25.0-35.0); MCHC 31.7 g/dL (31.0-37.0); Mean Platelet Volume 6.8; Monocytes # (A) 0.4 k/uL (0-1.0); Monocytes % (A) 6 %; Neutrophils # (A) 4.2 k/uL (1.3-7.7); Neutrophils % (A) 65 %; RBC 4.55 m/uL (3.80-5.40); RDW 12.1 % (11.5-15.5); WBC 6.5 k/uL (3.8-10.6); WBC (Perox) 6.96
[2016-12-24 12:15] LABS: ALT 34 U/L (9-52); AST 21 U/L (14-36); Alkaline Phosphatase 67 U/L (38-126); Anion Gap 11 mmol/L; Blood Urea Nitrogen 10 mg/dL (7-17); Calcium 9.8 mg/dL (8.4-10.2); Carbon Dioxide 27 mmol/L (22-30); Chloride 103 mmol/L (98-107); Glucose 97 mg/dL (74-99); Non-African American GFR(MDRD) >60 (>60 ml/min/1.73 sqM); Potassium 3.9 mmol/L (3.5-5.1); Sodium 141 mmol/L (137-145); Total Bilirubin 0.5 mg/dL (0.2-1.3); Total Protein 7.2 g/dL (6.3-8.2)
== END | disposition home or self-care (01) ==
LOC: LABWHC1 11:17
PROVIDERS: ATTEND Family Medicine
DX: I10 Essential (primary) hypertension (principal); F90.9 Attention-deficit hyperactivity disorder, unspecified type
CPT/HCPCS: 36415; 80053; 82390; 84443; 85025; 93005

== ENCOUNTER 2017-01-07 17:08 | Inpatient (IN) | payer OTHER ==
[2017-01-07] MEDS ORDERED: ONDANSETRON 4 MG/2 ML VIAL IVP STA (18:17)
[2017-01-07] MEDS ORDERED: SODIUM CHLORIDE 0.9% 1,000 ML IV STA ×2 (18:17)
[2017-01-07] MEDS ORDERED: HYDROmorphone 1 MG/ML 1 ML SYRINGE IVP STA (18:17)
--- NOTE | 2017-01-07 18:21 | ED ---
General Adult HPI - General Source: patient, RN notes reviewed Mode of arrival: ambulatory Limitations: no limitations <Tyrone Samano - Last Filed: 01/07/17 19:54> <Asim Hurley - Last Filed: 01/07/17 22:01> - General Chief complaint: Abdominal Pain Stated complaint: ABDOMINAL PAIN Time Seen by Provider: 01/07/17 18:09 - History of Present Illness Initial comments: Patient 31-year-old female status post cholecystectomy 3 weeks, who presents emergency room today with chief complaint of increased right upper quadrant pain. Does admit that the pain is worse over the last 2 days. States it was coming and going prior. Patient does admit that it's worse than what was previous surgery. She does admit that it's worse with deep inspiration. She does admit that she does feel short of breath at times. Admits to nausea. She denies any other complaints or symptoms. Patient denies any recent fever, chills , chest pain, back pain, vomiting, numbness or tingling, dysuria or hematuria, constipation or diarrhea, headaches or visual changes, or any other complaints. (Tyrone Samano) - Related Data Home Medications Medication Instructions Recorded Confirmed Bisoprolol-Hctz 5-6.25 mg [Ziac 1 tab PO DAILY 12/12/16 01/07/17 5-6.25] Sertraline HCl [Zoloft] 25 mg PO DAILY 12/12/16 01/07/17 clonazePAM [KlonoPIN] 0.5 mg PO BID PRN 12/12/16 01/07/17 Balsalazide Disodium [Colazal] 2,250 mg PO AC-TID 12/19/16 01/07/17 Dextroamphetamine/Amphetamine 20 mg PO QAM 01/07/17 01/07/17 [Adderall Xr] Allergies Allergy/AdvReac Type Severity Reaction Status Date / Time No Known Allergies Allergy Verified 01/07/17 18:41 Review of Systems ROS Other: All systems not noted in ROS Statement are negative. <Tyrone Samano - Last Filed: 01/07/17 19:54> ROS Other: All systems not noted in ROS Statement are negative. <Asim Hurley - Last Filed: 01/07/17 22:01> ROS Statement: Those systems with pertinent positive or pertinent negative responses have been documented in the HPI. Past Medical History Past Medical History: GI Bleed, Hypertension, Syncope Additional Past Medical History / Comment(s): ulcerative colitis, anxiety, uti, History of Any Multi-Drug Resistant Organisms: None Reported Date of last positivie culture/infection: none MDRO Source:: none Past Surgical History: Adenoidectomy, Cholecystectomy Additional Past Surgical History / Comment(s): COLONOSCOPY- r/t colitis , BIRTHMARK REMOVED LT HAND Past Anesthesia/Blood Transfusion Reactions: No Reported Reaction Past Psychological History: ADD/ADHD, Anxiety Additional Psychological History / Comment(s): not presently taking medication for this Smoking Status: Never smoker Past Alcohol Use History: Occasional Additional Past Alcohol Use History / Comment(s): Patient states she is a lifelong nonsmoker. She states she drinks occ on weekends no more than 7 drinks for the week. She is also using multiple different prescription medications but no street drugs currently although she has tried crack in the past. She is currently unemployed.lives with her grandfather. Past Drug Use History: None Reported - Past Family History Father Family Medical History: No Reported History Additional Family Medical History / Comment(s): Father is 50 years of age and healthy. Mother History Unknown: Yes Family Medical History: No Reported History Additional Family Medical History / Comment(s): Mother is 50 years of age and healthy. Patient has 1 brother and 4 sisters that are healthy. <Tyrone Samano - Last Filed: 01/07/17 19:54> General Exam Limitations: no limitations <Tyrone Samano - Last Filed: 01/07/17 19:54> <Asim Hurley - Last Filed: 01/07/17 22:01> - General Exam Comments Initial Comments: General: The patient is awake and alert, mild distress Eye: Pupils are equal, round and reactive to light, extra-ocular movements are intact. No nystagmus. There is normal conjunctiva bilaterally. No signs of icterus. Ears, nose, mouth and throat: There are moist mucous membranes and no oral lesions. Neck: The neck is supple, there is no tenderness or JVD. Cardiovascular: There is a regular rate and rhythm. No murmur, rub or gallop is appreciated. Respiratory: Lungs are clear to auscultation, respirations are non-labored, breath sounds are equal. No wheezes, stridor, rales, or rhonchi. Gastrointestinal: Normal. His abdomen. Normal bowel sounds. Soft on palpation. Patient's incisions healing well. Patient does have mild tenderness right upper quadrant. No rebound tenderness. No CVA tenderness. Musculoskeletal: Normal ROM, no tenderness. Strength 5/5. Sensation intact. Pulses equal bilaterally 2+. Neurological: A&O x 3. CN II-XII intact, There are no obvious motor or sensory deficits. Coordination appears grossly intact. Speech is normal. Skin: Skin is warm and dry and no rashes or lesions are noted. Psychiatric: Cooperative, appropriate mood & affect, normal judgment. (Tyrone Samano) Course <Tyrone Samano - Last Filed: 01/07/17 19:54> <Asim Hurley - Last Filed: 01/07/17 22:01> Vital Signs 01/07/17 17:26 Temperature 98.0 F Pulse Rate 108 H Respiratory 18 Rate Blood Pressure 149/105 O2 Sat by Pulse 99 Oximetry - Reevaluation(s) Reevaluation #1: 01/07/17 19:54 Case discussion and signed out to attending physician Dr. Hurley at this time. Patient's CT currently pending. (Tyrone Samano) Medical Decision Making - Lab Data Result diagrams: 01/07/17 18:37 01/07/17 19:25 <Tyrone Samano - Last Filed: 01/07/17 19:54> - Lab Data Result diagrams: 01/07/17 18:37 01/07/17 19:25 <Asim Hurley - Last Filed: 01/07/17 22:01> - Medical Decision Making Medical decision-making. The patient's white count 10.8 hemoglobin 14 hematocrit 44, potassium is 4.4 with a BUN 9 creatinine 0.77 GFR greater than 60. Glucose is 90. Urine shows positive urinary tract infection test is negative. The patient's d-dimer is mildly elevated 0.79. Patient had x-rays of the abdomen reviewed by radiologist's his final impression is nonacute abdomen. No adverse change compared to old exam. As read by Dr. Franklin Patient also a CT of the chest and abdomen. The radiologist's final impression is normal computed tomography scan of the chest. Negative computed tomography scan of the abdomen and pelvis. Bilateral ovarian cyst. There is a clearing of the inflammatory change of the right: Compared to old exam. As read by Dr. Franklin Case discussed Dr. Dr. Dang he okays patient be admitted the hospital for observation and IV hydration and treatment for urinary tract infection at this time. Case discussed with Dr. Ga on-call for for Dr. Dr. Dang , she feels is more of a medical admit, she will consult. But wants the patient admitted to medicine. Patient was started on Levaquin for urinary tract infection. (Asim Hurley) - Lab Data Lab Results 01/07/17 01/07/17 01/07/17 Range/Units 18:37 18:37 19:01 WBC 10.8 H (3.8-10.6) k/uL RBC 4.86 (3.80-5.40) m/uL Hgb 14.7 (11.4-16.0) gm/dL Hct 44.7 (34.0-46.0) % MCV 92.2 (80.0-100.0) fL MCH 30.2 (25.0-35.0) pg MCHC 32.8 (31.0-37.0) g/dL RDW 12.0 (11.5-15.5) % Plt Count 337 (150-450) k/uL Neutrophils % 72 % Lymphocytes % 17 % Monocytes % 6 % Eosinophils % 2 % Basophils % 0 % Neutrophils # 7.8 H (1.3-7.7) k/uL Lymphocytes # 1.9 (1.0-4.8) k/uL Monocytes # 0.6 (0-1.0) k/uL Eosinophils # 0.3 (0-0.7) k/uL Basophils # 0.0 (0-0.2) k/uL D-Dimer 0.79 H (<0.60) mg/L FEU Sodium (137-145) mmol/L Potassium (3.5-5.1) mmol/L Chloride (98-107) mmol/L Carbon Dioxide (22-30) mmol/L Anion Gap mmol/L BUN (7-17) mg/dL Creatinine (0.52-1.04) mg/dL Est GFR (MDRD) Af Amer (>60 ml/min/1.73 sqM) Est GFR (MDRD) Non-Af (>60 ml/min/1.73 sqM) Glucose (74-99) mg/dL Calcium (8.4-10.2) mg/dL Total Bilirubin (0.2-1.3) mg/dL AST (14-36) U/L ALT (9-52) U/L Alkaline Phosphatase (38-126) U/L Total Protein (6.3-8.2) g/dL Albumin (3.5-5.0) g/dL Amylase (30-110) U/L Lipase (23-300) U/L Urine Color Urine Appearance (Clear) Urine pH (5.0-8.0) Ur Specific [place] (1.001-1.035) Urine Protein (Negative) Urine Glucose (UA) (Negative) Urine Ketones (Negative) Urine Blood (Negative) Urine Nitrite (Negative) Urine Bilirubin (Negative) Urine Urobilinogen (<2.0) mg/dL Ur Leukocyte Esterase (Negative) Urine RBC (0-5) /hpf Urine WBC (0-5) /hpf Ur Squamous Epith Cells (0-4) /hpf Urine Bacteria (None) /hpf Urine Mucus (None) /hpf Urine Yeast (Budding) (None) /hpf Urine HCG, Qual Not Detected (Not Detectd) 01/07/17 01/07/17 Range/Units 19:01 19:25 WBC (3.8-10.6) k/uL RBC (3.80-5.40) m/uL Hgb (11.4-16.0) gm/dL Hct (34.0-46.0) % MCV (80.0-100.0) fL MCH (25.0-35.0) pg MCHC (31.0-37.0) g/dL RDW (11.5-15.5) % Plt Count (150-450) k/uL Neutrophils % % Lymphocytes % % Monocytes % % Eosinophils % % Basophils % % Neutrophils # (1.3-7.7) k/uL Lymphocytes # (1.0-4.8) k/uL Monocytes # (0-1.0) k/uL Eosinophils # (0-0.7) k/uL Basophils # (0-0.2) k/uL D-Dimer (<0.60) mg/L FEU Sodium 138 (137-145) mmol/L Potassium 4.4 (3.5-5.1) mmol/L Chloride 104 (98-107) mmol/L Carbon Dioxide 23 (22-30) mmol/L Anion Gap 11 mmol/L BUN 9 (7-17) mg/dL Creatinine 0.77 (0.52-1.04) mg/dL Est GFR (MDRD) Af Amer >60 (>60 ml/min/1.73 sqM) Est GFR (MDRD) Non-Af >60 (>60 ml/min/1.73 sqM) Glucose 90 (74-99) mg/dL Calcium 9.7 (8.4-10.2) mg/dL Total Bilirubin 0.6 (0.2-1.3) mg/dL AST 26 (14-36) U/L ALT 34 (9-52) U/L Alkaline Phosphatase 95 (38-126) U/L Total Protein 7.9 (6.3-8.2) g/dL Albumin 4.4 (3.5-5.0) g/dL Amylase 35 (30-110) U/L Lipase 172 (23-300) U/L Urine Color Yellow Urine Appearance Cloudy H (Clear) Urine pH 5.5 (5.0-8.0) Ur Specific [place] 1.013 (1.001-1.035) Urine Protein Negative (Negative) Urine Glucose (UA) Negative (Negative) Urine Ketones Negative (Negative) Urine Blood Negative (Negative) Urine Nitrite Negative (Negative) Urine Bilirubin Negative (Negative) Urine Urobilinogen <2.0 (<2.0) mg/dL Ur Leukocyte Esterase Large H (Negative) Urine RBC 8 H (0-5) /hpf Urine WBC 73 H (0-5) /hpf Ur Squamous Epith Cells 8 H (0-4) /hpf Urine Bacteria Few H (None) /hpf Urine Mucus Rare H (None) /hpf Urine Yeast (Budding) Occasional H (None) /hpf Urine HCG, Qual (Not Detectd) Disposition <Tyrone Samano - Last Filed: 01/07/17 19:54> <Asim Hurley - Last Filed: 01/07/17 22:01> Clinical Impression: Abdominal pain, Urinary tract infection Disposition: ADMITTED IP TO THIS HOSP Condition: Stable
[2017-01-07 19:01] LABS: Basophils % (A) 0 %; CH 30.8; CHCM 33.5; Eosinophils # (A) 0.3 k/uL (0-0.7); Eosinophils % (A) 2 %; HCT 44.7 % (34.0-46.0); HDW 2.29; HGB 14.7 gm/dL (11.4-16.0); Luc # (Auto) 0.21; Luc % (Auto) 2; Lymphocytes # (A) 1.9 k/uL (1.0-4.8); Lymphocytes % (A) 17 %; MCH 30.2 pg (25.0-35.0); MCHC 32.8 g/dL (31.0-37.0); MCV 92.2 fL (80.0-100.0); Mean Platelet Volume 6.8; Monocytes # (A) 0.6 k/uL (0-1.0); Monocytes % (A) 6 %; Neutrophils # (A) 7.8 k/uL (1.3-7.7); Neutrophils % (A) 72 %; RBC 4.86 m/uL (3.80-5.40); WBC 10.8 k/uL (3.8-10.6); WBC (Perox) 10.68
[2017-01-07 19:23] LABS: Appearance,Urine Cloudy (Clear); Bacteria,Urine Few /hpf; Bilirubin,Urine Negative (Negative); Glucose,Urine (UA) Negative (Negative); Ketones,Urine Negative (Negative); Leukocyte Esterase,Urine Large (Negative); Mucus,Urine Rare /hpf; Nitrite,Urine Negative (Negative); PH, Urine 5.5 (5.0-8.0); Particle Count 11799; Protein,Urine Negative (Negative); RBC,Urine 8 /hpf (0-5); Specific Gravity,Urine 1.013 (1.001-1.035); Squamous Epithelial Cell,Urine 8 /hpf (0-4); UA Billing (MACRO vs. MICRO) MICRO; Urobilinogen,Urine <2.0 mg/dL (<2.0); WBC,Urine 73 /hpf (0-5)
[2017-01-07] MEDS ORDERED: RX INFO: IV CONTRAST WAS GIVEN 1 EACH MISC MISCELLANE PRN (19:26)
--- NOTE | 2017-01-07 19:42 | XR ---
EXAMINATION TYPE: XR chest 2V DATE OF EXAM: 01/07/2017 7:32 PM COMPARISON: 02/01/2016 HISTORY: Right upper quadrant pain and chest pain TECHNIQUE: Frontal and lateral views of the chest are obtained. FINDINGS: Heart and mediastinum are normal. Lungs are clear. Diaphragm is normal. Bony thorax appear s normal. IMPRESSION: Normal chest. No change.
--- NOTE | 2017-01-07 19:43 | XR ---
EXAMINATION TYPE: XR KUB DATE OF EXAM: 01/07/2017 7:32 PM COMPARISON: 12/12/2016 HISTORY: Abdominal pain and nausea TECHNIQUE: 2 views FINDINGS: Bowel gas pattern is normal. There is no sign of intestinal obstruction or pneumoperitoneum . There are clips from cholecystectomy. Fecal pattern is normal. There is no sign of a mass. IMPRESSION: Nonacute abdomen. No adverse change compared to old exam.
[2017-01-07 19:44] LABS: ALT 34 U/L (9-52); AST 26 U/L (14-36); Alkaline Phosphatase 95 U/L (38-126); Amylase 35 U/L (30-110); Anion Gap 11 mmol/L; Blood Urea Nitrogen 9 mg/dL (7-17); Calcium 9.7 mg/dL (8.4-10.2); Carbon Dioxide 23 mmol/L (22-30); Chloride 104 mmol/L (98-107); Glucose 90 mg/dL (74-99); Non-African American GFR(MDRD) >60 (>60 ml/min/1.73 sqM); Potassium 4.4 mmol/L (3.5-5.1); Sodium 138 mmol/L (137-145); Total Bilirubin 0.6 mg/dL (0.2-1.3); Total Protein 7.9 g/dL (6.3-8.2)
--- NOTE | 2017-01-07 20:01 | CT ---
EXAMINATION TYPE: CT ChestAbdPelvis w con DATE OF EXAM: 01/07/2017 7:50 PM COMPARISON: 12/19/2016 HISTORY: Abdominal pain CT DLP: mGycm Automated exposure control for dose reduction was used. CONTRAST: IV contrast was Omnipaque 100 mL.. FINDINGS: The lungs are clear of infiltrate. There is no pleural effusion. There is no pericardial effusion. Th ere is no mediastinal adenopathy. There are no hilar masses. Liver spleen pancreas appear normal. There are clips from cholecystectomy. Bile ducts are not dilated . There is no adrenal mass. Kidneys show satisfactory contrast opacification. There is no hydronephrosi s. Appendix appears normal. There is no ascites. There is no retroperitoneal adenopathy. I see no int estinal wall thickening. There are no dilated loops. There are bilateral ovarian cysts that measure u p to 3 cm. Bladder distends smoothly. There is no sign of the solid pelvic mass. IMPRESSION: Normal CT scan of the chest. Negative CT scan of the abdomen and pelvis. Bilateral ovarian cysts. There is clearing of the inflamm atory changes of the right colon Compared to old exam.
[2017-01-07] MEDS ORDERED: LEVOFLOXACIN 500MG-D5W PMX 500 MG in DEXTROSE/WATER 1 100ML.BAG IVPB STA (21:58)
[2017-01-07] MEDS ORDERED: HYDROmorphone 1 MG/ML 1 ML SYRINGE IM STA (21:59)
[2017-01-07] MEDS ORDERED: NALOXONE 0.4 MG/ML 1 ML VIAL IV PRN (22:03)
[2017-01-07] MEDS ORDERED: METOCLOPRAMIDE 5 MG/ML 2 ML VIAL IVP PRN (22:08)
[2017-01-07 23:20] VITALS: BMI 29.9
[2017-01-07] MEDS: SODIUM CHLORIDE 0.9% 1,000 ML IV SCH (23:23)
[2017-01-08] MEDS: HYDROmorphone 1 MG/ML 1 ML SYRINGE IV PRN ×4 (00:35→10:26)
[2017-01-08 07:02] LABS: Basophils % (A) 0 %; CH 31.1; Eosinophils # (A) 0.5 k/uL (0-0.7); Eosinophils % (A) 6 %; HCT 39.4 % (34.0-46.0); HDW 2.24; HGB 12.9 gm/dL (11.4-16.0); Luc % (Auto) 3; Lymphocytes % (A) 21 %; MCH 30.8 pg (25.0-35.0); MCHC 32.6 g/dL (31.0-37.0); MCV 94.5 fL (80.0-100.0); Mean Platelet Volume 7.6; Monocytes # (A) 0.6 k/uL (0-1.0); Monocytes % (A) 7 %; Neutrophils # (A) 5.9 k/uL (1.3-7.7); Neutrophils % (A) 63 %; RBC 4.17 m/uL (3.80-5.40); WBC 9.4 k/uL (3.8-10.6); WBC (Perox) 9.64
[2017-01-08 07:20] LABS: ALT 30 U/L (9-52); AST 18 U/L (14-36); Alkaline Phosphatase 75 U/L (38-126); Anion Gap 11 mmol/L; Blood Urea Nitrogen 9 mg/dL (7-17); Calcium 9.2 mg/dL (8.4-10.2); Carbon Dioxide 23 mmol/L (22-30); Chloride 103 mmol/L (98-107); Glucose 91 mg/dL (74-99); Non-African American GFR(MDRD) >60 (>60 ml/min/1.73 sqM); Potassium 3.7 mmol/L (3.5-5.1); Sodium 137 mmol/L (137-145); Total Bilirubin 0.5 mg/dL (0.2-1.3); Total Protein 6.3 g/dL (6.3-8.2)
[2017-01-08] MEDS: BALSALAZIDE DISODIUM 750 MG CAPSULE PO SCH ×3 (07:23→18:28)
[2017-01-08] MEDS: clonazePAM 0.5 MG TAB PO PRN ×2 (08:07→20:34)
[2017-01-08] MEDS: BISOPROLOL-HCTZ 5-6.25 MG 1 EACH TAB PO SCH (08:07)
[2017-01-08] MEDS ORDERED: NON-FORMULARY DRUG (Dextroamphetamine/Amphetamine [Adderall Xr] 20 MG) PO SCH (09:00)
[2017-01-08] MEDS ORDERED: PANTOPRAZOLE 40 MG/10 ML VIAL IV SCH (09:00)
[2017-01-08] MEDS: SODIUM CHLORIDE 0.9% 1,000 ML IV SCH ×2 (10:33→20:36)
--- NOTE | 2017-01-08 11:46 | P.GSCN ---
History of Present Illness Consult date: 01/08/17 Reason for Consult: Right upper quadrant pain History of present illness: The patient is a pleasant 31-year-old female who comes complained of some increasing pain in the right upper abdomen under her breast. It hurts intermittently since surgery but is worse than before her previous surgery. She had a cholecystectomy done about a month ago by Dr. Dang. It causes her more pain if she takes in a deep breath. Also hurts with movement. Denies any fevers or chills. She gets a little nausea which she feels is due to the pain. Denies any trauma. Denies any cough or congestion. No sputum production. Denies shortness of breath. She has a history of ulcerative colitis but has not been having diarrhea. She had a colonoscopy by Dr. Christiansen about a year ago. No history of ulcer disease. No jaundice, tea-colored urine or acholic stools. Review of Systems All systems: negative Past Medical History Past Medical History: GI Bleed, Hypertension, Syncope Additional Past Medical History / Comment(s): ulcerative colitis, anxiety, uti, History of Any Multi-Drug Resistant Organisms: None Reported Year Discovered:: none MDRO Source:: none Past Surgical History: Adenoidectomy, Cholecystectomy Additional Past Surgical History / Comment(s): COLONOSCOPY- r/t colitis , BIRTHMARK REMOVED LT HAND Past Anesthesia/Blood Transfusion Reactions: No Reported Reaction Past Psychological History: ADD/ADHD, Anxiety Additional Psychological History / Comment(s): not presently taking medication for this Smoking Status: Never smoker Past Alcohol Use History: Occasional Additional Past Alcohol Use History / Comment(s): Patient states she is a lifelong nonsmoker. She states she drinks occ on weekends no more than 7 drinks for the week. She is also using multiple different prescription medications but no street drugs currently although she has tried crack in the past. She is currently unemployed.lives with her grandfather. Past Drug Use History: None Reported - Past Family History Father Family Medical History: No Reported History Additional Family Medical History / Comment(s): Father is 50 years of age and healthy. Mother History Unknown: Yes Family Medical History: No Reported History Additional Family Medical History / Comment(s): Mother is 50 years of age and healthy. Patient has 1 brother and 4 sisters that are healthy. Medications and Allergies Home Medications Medication Instructions Recorded Confirmed Type Bisoprolol-Hctz 5-6.25 mg [Ziac 1 tab PO DAILY 12/12/16 01/07/17 History 5-6.25] Sertraline HCl [Zoloft] 25 mg PO DAILY 12/12/16 01/07/17 History clonazePAM [KlonoPIN] 0.5 mg PO BID PRN 12/12/16 01/07/17 History Balsalazide Disodium [Colazal] 2,250 mg PO AC-TID 12/19/16 01/07/17 History Dextroamphetamine/Amphetamine 20 mg PO QAM 01/07/17 01/07/17 History [Adderall Xr] Allergies Allergy/AdvReac Type Severity Reaction Status Date / Time No Known Allergies Allergy Verified 01/07/17 23:36 Surgical - Exam Osteopathic Statement: *. No significant issues noted on an osteopathic structural exam other than those noted in the History and Physical/Consult. Vital Signs Temp Pulse Resp BP Pulse Ox 98.0 F 108 H 18 149/105 99 01/07/17 17:26 01/07/17 17:26 01/07/17 17:26 01/07/17 17:26 01/07/17 17:26 - General well developed, well nourished, no distress - Eyes normal ocular movement - ENT normal mucosa, no hearing loss - Neck trachea midline, no lymphadectomy - Respiratory normal expansion, clear to auscultation - Cardiovascular Rhythm: regular - Abdomen The patient has pain to palpation along the right lower rib cage. This reproduces her symptoms. Abdomen: soft, non tender, bowel sounds, surgical scars (Well-healed) Results - Labs 01/08/17 06:20 01/08/17 06:20 Diabetes panel 01/08/17 Range/Units 06:20 Sodium 137 (137-145) mmol/L Potassium 3.7 (3.5-5.1) mmol/L Chloride 103 (98-107) mmol/L Carbon Dioxide 23 (22-30) mmol/L BUN 9 (7-17) mg/dL Creatinine 0.88 (0.52-1.04) mg/dL Glucose 91 (74-99) mg/dL Calcium 9.2 (8.4-10.2) mg/dL AST 18 (14-36) U/L ALT 30 (9-52) U/L Alkaline Phosphatase 75 (38-126) U/L Total Protein 6.3 (6.3-8.2) g/dL Albumin 3.5 (3.5-5.0) g/dL Calcium panel 01/08/17 Range/Units 06:20 Calcium 9.2 (8.4-10.2) mg/dL Albumin 3.5 (3.5-5.0) g/dL Pituitary panel 01/08/17 Range/Units 06:20 Sodium 137 (137-145) mmol/L Potassium 3.7 (3.5-5.1) mmol/L Chloride 103 (98-107) mmol/L Carbon Dioxide 23 (22-30) mmol/L BUN 9 (7-17) mg/dL Creatinine 0.88 (0.52-1.04) mg/dL Glucose 91 (74-99) mg/dL Calcium 9.2 (8.4-10.2) mg/dL Adrenal panel 01/08/17 Range/Units 06:20 Sodium 137 (137-145) mmol/L Potassium 3.7 (3.5-5.1) mmol/L Chloride 103 (98-107) mmol/L Carbon Dioxide 23 (22-30) mmol/L BUN 9 (7-17) mg/dL Creatinine 0.88 (0.52-1.04) mg/dL Glucose 91 (74-99) mg/dL Calcium 9.2 (8.4-10.2) mg/dL Total Bilirubin 0.5 (0.2-1.3) mg/dL AST 18 (14-36) U/L ALT 30 (9-52) U/L Alkaline Phosphatase 75 (38-126) U/L Total Protein 6.3 (6.3-8.2) g/dL Albumin 3.5 (3.5-5.0) g/dL - Imaging CT scan - abdomen: report reviewed Assessment and Plan (1) Chest pain on respiration Status: Acute (2) Musculoskeletal pain Status: Acute (3) History of laparoscopic cholecystectomy Status: Acute (4) History of ulcerative colitis Status: Acute Plan: The pain does not appear to be surgical. Since the pain is worse with inspiration I would recommend pulmonary evaluation. Add some warm compresses to the chest for discomfort. Add a nonsteroidal anti-inflammatory. Will follow up on a when necessary basis.
[2017-01-08] MEDS ORDERED: HYDROcodone/APAP 5-325MG 1 EACH TAB PO PRN (11:48)
--- NOTE | 2017-01-08 12:37 | P.HPIM ---
History of Present Illness H&P Date: 01/08/17 Chief Complaint: Right upper quadrant pain This is a pleasant 31-year-old white female underwent labs, cholecystectomy with Dr. Dang on 12/13/2016. This was uneventful and she had some pain after the procedure but it quickly resolved. Approximate 3 days ago she reports increasing right upper quadrant pain. She reports no injury. The pain is worse with inspiration. She has a history of bipolar depression, ulcerative colitis, and anxiety. She denies any other symptoms with this. Review of Systems All systems: negative Constitutional: Denies chills, Denies fever Eyes: denies blurred vision, denies pain Ears, nose, mouth and throat: Denies headache, Denies sore throat Cardiovascular: Denies chest pain, Denies shortness of breath Respiratory: Denies cough Gastrointestinal: Reports as per HPI, Reports abdominal pain, Denies diarrhea, Denies nausea, Denies vomiting Genitourinary: Denies dysuria, Denies hematuria Musculoskeletal: Denies myalgias Integumentary: Denies pruritus, Denies rash Neurological: Denies numbness, Denies weakness Psychiatric: Denies anxiety, Denies depression Endocrine: Denies fatigue, Denies weight change Past Medical History Past Medical History: GI Bleed, Hypertension, Syncope Additional Past Medical History / Comment(s): ulcerative colitis, anxiety, uti, History of Any Multi-Drug Resistant Organisms: None Reported Date of last positivie culture/infection: none MDRO Source:: none Past Surgical History: Adenoidectomy, Cholecystectomy Additional Past Surgical History / Comment(s): COLONOSCOPY- r/t colitis , BIRTHMARK REMOVED LT HAND Past Anesthesia/Blood Transfusion Reactions: No Reported Reaction Past Psychological History: ADD/ADHD, Anxiety Additional Psychological History / Comment(s): not presently taking medication for this Smoking Status: Never smoker Past Alcohol Use History: Occasional Additional Past Alcohol Use History / Comment(s): Patient states she is a lifelong nonsmoker. She states she drinks occ on weekends no more than 7 drinks for the week. She is also using multiple different prescription medications but no street drugs currently although she has tried crack in the past. She is currently unemployed.lives with her grandfather. Past Drug Use History: None Reported - Past Family History Father Family Medical History: No Reported History Additional Family Medical History / Comment(s): Father is 50 years of age and healthy. Mother History Unknown: Yes Family Medical History: No Reported History Additional Family Medical History / Comment(s): Mother is 50 years of age and healthy. Patient has 1 brother and 4 sisters that are healthy. Medications and Allergies Home Medications Medication Instructions Recorded Confirmed Type Bisoprolol-Hctz 5-6.25 mg [Ziac 1 tab PO DAILY 12/12/16 01/07/17 History 5-6.25] Sertraline HCl [Zoloft] 25 mg PO DAILY 12/12/16 01/07/17 History clonazePAM [KlonoPIN] 0.5 mg PO BID PRN 12/12/16 01/07/17 History Balsalazide Disodium [Colazal] 2,250 mg PO AC-TID 12/19/16 01/07/17 History Dextroamphetamine/Amphetamine 20 mg PO QAM 01/07/17 01/07/17 History [Adderall Xr] Allergies Allergy/AdvReac Type Severity Reaction Status Date / Time No Known Allergies Allergy Verified 01/07/17 23:36 Physical Exam Vitals: Vital Signs Temp Pulse Pulse Resp BP BP Pulse Ox 01/08/17 07:13 97.7 F 104 H 16 128/83 97 01/08/17 02:16 98.5 F 108 H 16 129/99 93 L 01/07/17 23:00 97.8 F 98 17 144/92 96 01/07/17 22:27 102 H 16 139/89 94 L Intake and Output 01/07/17 01/08/17 01/08/17 22:59 06:59 14:59 Other: # Voids 1 Weight 81.647 kg GENERAL: Well-appearing, well-nourished and in no acute distress. HEAD: Atraumatic, normocephalic. EYES: Pupils equal round and reactive to light, extraocular movements intact, sclera anicteric, conjunctiva are normal. ENT:nares patent, oropharynx clear without exudates. Moist mucous membranes. NECK: Normal range of motion, supple without lymphadenopathy or JVD, no thyromegaly LUNGS: Breath sounds clear to auscultation bilaterally and equal. No wheezes rales or rhonchi. HEART: Regular rate and rhythm without murmurs, rubs or gallops.[id number] Normal ABDOMEN: Soft, right upper quadrant tenderness, seems to be more over the rib cage, then the upper quadrant itself, normoactive bowel sounds. No guarding, no rebound. No masses appreciated. EXTREMITIES: Normal range of motion, no pitting or edema. No clubbing or cyanosis. NEUROLOGICAL: Cranial nerves II through XII grossly intact. Normal speech, normal gait. PSYCH: Normal mood, normal affect. SKIN: Warm, Dry, normal turgor, no rashes or lesions noted. Results CBC & Chem 7: 01/08/17 06:20 01/08/17 06:20 Thrombosis Risk Factor Assmnt - DVT/VTE Prophylaxis DVT/VTE Prophylaxis: Low risk, early ambulation encouraged - Choose All That Apply Each Factor Represents 1 point: Obesity (BMI >25) Thrombosis Risk Factor Assessment Total Risk Factor Score: 1 Thrombosis Risk Factor Assessment Level: Low Risk Assessment and Plan Plan: Right upper quadrant pain with recent laparoscopic cholecystectomy 12/13/2016.: Pain seems to be slightly more rib in origin, however I will consult GI for possible relationship to her ulcer colitis and/or ERCP if they deem necessary. We'll consult pulmonology the request of Dr. Tello. She'll continue her on pantoprazole I'll obtain a rib film. I'll repeat her d-dimer. Continue on ibuprofen. I'll discontinue her Dilaudid and [place], and place her on oral Percocet Ulcer colitis: She will continue on her Colazal. UTI: She'll continue on Levaquin Bipolar depression: I'll monitor: She'll continue on her Klonopin when necessary. I will await consult recommendations, we will reevaluate her in the next 24 hours.
[2017-01-08 13:35] LABS: Amylase <30 U/L (30-110)
[2017-01-08] MEDS: IBUPROFEN 600 MG TAB PO SCH ×2 (14:18→20:34)
[2017-01-08] MEDS: oxyCODONE-APAP 10-325MG 1 EACH TAB PO PRN ×2 (16:33→20:35)
--- NOTE | 2017-01-08 19:44 | XR ---
Chest x-ray with right RIBS HISTORY: Right upper quadrant pain, rib pain Correlation to chest x-ray December There is no displaced rib fracture. No pneumothorax or pleural effusion. No significant interval rodríguez ge. Surgical clips in the right upper quadrant. IMPRESSION: If occult fracture is suspected clinically then bone scan may be of benefit.
--- NOTE | 2017-01-08 20:07 | US ---
EXAMINATION TYPE: US venous doppler duplex LE DATE OF EXAM: 01/08/2017 3:44 PM COMPARISON: NONE CLINICAL HISTORY: rule out DVT. RUQ pain post cholecystectomy a few weeks ago, no h/o dvt, no leg swe lling, no pain SIDE PERFORMED: Bilateral VESSELS IMAGED: External Iliac Vein (EIV) Common Femoral Vein Deep Femoral Vein Greater Saphenous Vein * Femoral Vein Popliteal Vein Small Saphenous Vein * Proximal Calf Veins (* superficial vessels) Conner scale, color Doppler, spectral Doppler imaging performed of the deep veins of both lower extremi ties. There is normal compressibility, color flow, vascular waveforms present within the deep veins e valuated lower extremities. Right Leg: Appears negative for DVT Left Leg: Appears negative for DVT IMPRESSION: No deep venous thrombosis at or above the knees bilaterally
[2017-01-08] MEDS: LEVOFLOXACIN 500 MG TAB PO SCH (20:34)
[2017-01-08] MEDS ORDERED: LEVOFLOXACIN 500MG-D5W PMX 500 MG in DEXTROSE/WATER 1 100ML.BAG IVPB SCH (22:00)
[2017-01-09] MEDS: oxyCODONE-APAP 10-325MG 1 EACH TAB PO PRN ×6 (00:34→21:32)
[2017-01-09 07:46] LABS: Basophils % (A) 0 %; CH 30.4; CHCM 32.3; Eosinophils # (A) 0.5 k/uL (0-0.7); Eosinophils % (A) 8 %; HCT 39.5 % (34.0-46.0); HDW 2.26; HGB 12.9 gm/dL (11.4-16.0); Luc # (Auto) 0.17; Luc % (Auto) 3; Lymphocytes # (A) 1.6 k/uL (1.0-4.8); Lymphocytes % (A) 25 %; MCH 30.7 pg (25.0-35.0); MCHC 32.5 g/dL (31.0-37.0); MCV 94.2 fL (80.0-100.0); Monocytes # (A) 0.5 k/uL (0-1.0); Monocytes % (A) 8 %; Neutrophils # (A) 3.7 k/uL (1.3-7.7); Neutrophils % (A) 57 %; RBC 4.19 m/uL (3.80-5.40); RDW 11.7 % (11.5-15.5); WBC 6.5 k/uL (3.8-10.6)
[2017-01-09 07:51] LABS: Amylase 31 U/L (30-110); Anion Gap 9 mmol/L; Blood Urea Nitrogen 11 mg/dL (7-17); Calcium 8.9 mg/dL (8.4-10.2); Carbon Dioxide 24 mmol/L (22-30); Chloride 103 mmol/L (98-107); Glucose 84 mg/dL (74-99); Magnesium 1.8 mg/dL (1.6-2.3); Non-African American GFR(MDRD) >60 (>60 ml/min/1.73 sqM); Potassium 4.1 mmol/L (3.5-5.1); Sodium 136 mmol/L (137-145)
[2017-01-09] MEDS: IBUPROFEN 600 MG TAB PO SCH ×3 (09:12→21:33)
[2017-01-09] MEDS: BALSALAZIDE DISODIUM 750 MG CAPSULE PO SCH ×3 (09:12→17:28)
[2017-01-09] MEDS: BISOPROLOL-HCTZ 5-6.25 MG 1 EACH TAB PO SCH (09:13)
[2017-01-09] MEDS: PANTOPRAZOLE 40 MG TABLET PO SCH (09:13)
[2017-01-09] MEDS: SODIUM CHLORIDE 0.9% 1,000 ML IV SCH ×2 (09:14→12:04)
--- NOTE | 2017-01-09 11:37 | P.PN ---
Subjective his is a pleasant 31-year-old white female underwent labs, cholecystectomy with Dr. Dang on 12/13/2016. This was uneventful and she had some pain after the procedure but it quickly resolved. Approximate 3 days ago she reports increasing right upper quadrant pain. She reports no injury. The pain is worse with inspiration. She has a history of bipolar depression, ulcerative colitis, and anxiety. She denies any other symptoms with this. Her pain seems to be more costal angle and rib related. Her rib films were negative, a CT chest abdomen and pelvis negative, a repeat d-dimer was minimally positive, and a venous Doppler was negative. She reports symptoms are improved. She is off IV Dilaudid and [place], and is tolerating Percocet, one tablet every 4 hours. She denies any difficulty with the urination. She complains if she inability to take a deep breath without pain. Her pain is exacerbated still with movement. She does feel better when she is upright. Surgery recommendations are noted, GI and pulmonology consultations are pending. Objective - Vital Signs Vital signs: Vital Signs Temp 97.8 F 01/09/17 06:56 Pulse 88 01/09/17 06:56 Resp 16 01/09/17 06:56 BP 117/81 01/09/17 06:56 Pulse Ox 98 01/09/17 06:56 Intake & Output 01/08/17 01/09/17 01/09/17 18:59 06:59 18:59 Intake Total 1160 1590 Balance 1160 1590 Intake: IV 800 1000 Sodium Chloride 0.9% 1, 800 1000 000 ml @ 100 mls/hr IV . Q10H [facility] Rx#:[id number] Oral 360 590 Other: Voiding Method Toilet # Voids 3 - Exam GENERAL: Well-appearing, well-nourished and in no acute distress. HEAD: Atraumatic, normocephalic. NECK: Normal range of motion, supple without lymphadenopathy or JVD, no thyromegaly LUNGS: Breath sounds slightly coarse to auscultation bilaterally and equal. No wheezes rales or rhonchi. HEART: Regular rate and rhythm without murmurs, rubs or gallops.S1S2 Normal ABDOMEN: Soft, right upper quadrant tenderness, seems to be more pronounced over the rib cage, then the upper quadrant itself, normoactive bowel sounds. No guarding, no rebound. No masses appreciated. EXTREMITIES: Normal range of motion, no pitting or edema. No clubbing or cyanosis. NEUROLOGICAL: Cranial nerves II through XII grossly intact. Normal speech, normal gait. PSYCH: Normal mood, normal affect. SKIN: Warm, Dry, normal turgor, no rashes or lesions noted. - Labs CBC & Chem 7: 01/09/17 06:45 01/09/17 06:45 Labs: Abnormal Lab Results - Last 24 Hours (Table) 01/08/17 01/08/17 01/09/17 Range/Units 12:55 12:55 06:45 D-Dimer 0.68 H (<0.60) mg/L FEU Sodium 136 L (137-145) mmol/L Amylase <30 L (30-110) U/L Assessment and Plan Plan: Right upper quadrant pain with recent laparoscopic cholecystectomy 12/13/2016.: Pain seems to be more rib in origin. Continue Percocet, await GI and pulmonology recommendations Ulcer colitis: She will continue on her Colazal. Await GI recommendations UTI: She'll continue on Levaquin Bipolar depression: I'll monitor: She'll continue on her Klonopin when necessary. DVT prophylaxis: She'll ambulate frequently and early. GI prophylaxis: She continues on pantoprazole I will await consult recommendations, possible discharge today
[2017-01-09] MEDS ORDERED: RX INFO: IV CONTRAST WAS GIVEN 1 EACH MISC MISCELLANE PRN (11:45)
--- NOTE | 2017-01-09 13:51 | P.PN ---
Progress Note - Text I reviewed the CT angios the chest. I discussed the case at length with Dr. Pacheco Greene from interventional radiology. There is an obvious pleural reaction in the right posterior lung area and it's very difficult to exclude the possibility of pulmonary embolism. There is no clear-cut filling defect yet the secondary and tertiary branches in the right lower lobe are not well opacified. Based on the clinical presentation and based on the pleural reaction that is being seen, it's reasonable to treat this patient and to coagulation for a total of 3 months and then stop. Pneumonia is possible yet it 's less likely and the patient is already on Levaquin for now. I'm going to start the patient on Xarelto 3 mg by mouth twice a day for 3 weeks and then 10 mg by mouth daily for a total of 3 months.
--- NOTE | 2017-01-09 14:03 | CT ---
EXAMINATION TYPE: CT chest angio for PE DATE OF EXAM: 01/09/2017 1:48 PM COMPARISON: Chest x-ray 08 January 2017, chest CT November HISTORY: Chest pain, postcholecystectomy Automated exposure control for dose reduction was used. CONTRAST: CT Chest for pulmonary embolism performed with with IV Contrast, patient injected with 100 mL of Omni paque 350. FINDINGS: LUNGS: There is a small right pleural effusion, there is basilar atelectatic change MEDIASTINUM: In the segmental branches in the right lower lobe there is poor enhancement. AORTA: No additional significant abnormality is seen. OTHER: The liver is enlarged and shows low attenuation likely due to fatty infiltration. Patient is p ost cholecystectomy. IMPRESSION: Cannot exclude pulmonary embolism within the segmental branch of the right lower lobe. Case discussed with Dr. Soto telephonically at the time of interpretation.
[2017-01-09] MEDS: RIVAROXABAN 15 MG TAB PO SCH (17:29)
[2017-01-09] MEDS: LEVOFLOXACIN 500 MG TAB PO SCH (21:32)
[2017-01-09] MEDS: clonazePAM 0.5 MG TAB PO PRN (21:33)
[2017-01-10] MEDS: oxyCODONE-APAP 10-325MG 1 EACH TAB PO PRN ×6 (01:15→21:32)
[2017-01-10] MEDS: SODIUM CHLORIDE 0.9% 1,000 ML IV SCH ×3 (02:29→16:09)
[2017-01-10] MEDS: BISOPROLOL-HCTZ 5-6.25 MG 1 EACH TAB PO SCH (07:47)
[2017-01-10] MEDS: RIVAROXABAN 15 MG TAB PO SCH ×2 (07:47→17:18)
[2017-01-10] MEDS: IBUPROFEN 600 MG TAB PO SCH ×3 (07:47→21:29)
[2017-01-10] MEDS: PANTOPRAZOLE 40 MG TABLET PO SCH (07:48)
[2017-01-10] MEDS: BALSALAZIDE DISODIUM 750 MG CAPSULE PO SCH ×3 (07:48→17:18)
[2017-01-10] MEDS: clonazePAM 0.5 MG TAB PO PRN ×2 (09:20→18:25)
--- NOTE | 2017-01-10 13:10 | P.PN ---
Subjective Principal diagnosis: Acute pulmonary embolism This is a 31-year-old female with history of depression, bipolar disorder, recent cholecystectomy on 12/13/2016, admitted and seen by Dr. Soto on consultation for what seemed to be a right-sided pleurisy and pleuritic chest pain. When the area of the right upper quadrant, workup was negative except for CT of the chest questioned a small tiny right-sided pulmonary embolus. Patient was placed on heparin and now on Xarelto orally, and the plan is to continue treatment with Xarelto for a period of 3 months only. In the meantime the patient received Solu-Medrol for her pleurisy which seems to be helping. Hence I believe the patient could be considered for discharge planning on a course of prednisone 30 mg tapered over 2 weeks, along with Xarelto for 3 months. The Xarelto dose will be 15 mg daily for 3 weeks, to be followed by 20 mg daily for a total period of 3 months. Objective - Vital Signs Vital signs: Vital Signs Temp 97.2 F L 01/10/17 02:12 Pulse 90 01/10/17 07:42 Resp 16 01/10/17 07:42 BP 137/91 01/10/17 07:42 Pulse Ox 98 01/10/17 07:42 Intake & Output 01/09/17 01/10/17 01/10/17 18:59 06:59 18:59 Intake Total 800 2540 Balance 800 2540 Intake: IV 800 1350 Sodium Chloride 0.9% 1, 800 1350 000 ml @ 100 mls/hr IV . Q10H [facility] Rx#:[id number] Oral 1190 Other: Voiding Method Toilet # Voids 3 3 - Exam Physical Exam: Revealed a 31-year-old white female in no distress HEENT:[Neck is supple.] [No neck masses.] [No thyromegaly.] [No JVD.] Chest: [Clear throughout, no crackles, no rhonchi, no wheezes.] Cardiac Exam: [Normal S1 and S2, no S3 gallop, no murmur.] Abdomen: [Soft, nontender, no megaly, no rebound, no guarding, normal bowel sounds.] Extremities: [No clubbing, no edema, no cyanosis.] Neurological Exam: [No focal neurologic deficit.] - Labs CBC & Chem 7: 01/09/17 06:45 01/09/17 06:45 Assessment and Plan Plan: Acute pulmonary embolism is strongly suspected and acute pleurisy. Recommendation: Consider discharge planning today on Xarelto for 3 months and prednisone 30 mg tapered over 2 weeks. Patient could have follow-up with Dr. Soto in the office in the next 5 days. Cleared for discharge today. Time with Patient: Less than 30
--- NOTE | 2017-01-10 15:17 | P.DS ---
Providers Date of admission: 01/07/17 22:03 Expected date of discharge: 01/10/17 Attending physician: Jamel Henderson Consults: 01/08/17 12:37 Consult Physician Routine Consulting Provider: Emiliano Olivo Consult Reason/Comments: ercp / ulcer colitis Do you want consulting provider notified?: Yes 01/08/17 12:38 Consult Physician Routine Consulting Provider: Stacie Soto Consult Reason/Comments: pain with inspiration Do you want consulting provider notified?: Yes Primary care physician: Jamel Henderson Hospital Course: Patient is a 31-year-old female, patient of Dr. Henderson in the outpatient setting, with medical history significant for hypertension, GI bleed , ulcerative colitis, anxiety, and urinary tract infections. Patient recently underwent laparoscopic cholecystectomy by Dr. Dang on 12/13/2016 and was discharged home in stable condition. Patient was admitted through the emergency department with complaints of increased right upper quadrant pain that started approximately 3 days prior to admission. Workup negative except for slightly elevated D-dimer and CT angiogram with possible evidence of small right-sided pulmonary embolism. Patient was started on IV heparin and converted to Xarelto 15 mg twice daily for 3 weeks followed by 20 mg daily for total of 3 months. Patient was evaluated by Dr. Soto and Dr. Sahu from pulmonary service who also recommended a prednisone taper to help the patient's pleurisy. Patient had possible urinary tract infection and was started on Levaquin which was continued on discharge for possible pneumonia, which was felt less likely per pulmonary medicine. In addition, patient was evaluated by Dr. Ga from surgical service who felt right upper quadrant pain was nonsurgical in nature. Patient was felt stable for discharge with close follow- up in the outpatient setting. Discharge diagnoses: 1. Right upper quadrant pain suspect secondary pleurisy secondary to acute right-sided pulmonary embolus with possible pneumonia, community-acquired. 2. History of ulcerated colitis. 3. Urinary tract infection, ruled out. 4. Bipolar, depression, stable. 5. History of laparoscopic cholecystectomy. The above impression and plan have been discussed and directed by Dr. Medina. Ivanna MELTON acting as scribe for Dr. Medina. Pertinent Studies: Chest x-ray; KUB x-ray; chest/abdomen/pelvis CT; RIBS with chest x-ray; venous Doppler study; chest CTA Patient Condition at Discharge: Good Plan - Discharge Summary New Discharge Prescriptions: Levofloxacin [Levaquin] 500 mg PO HS #6 tab Pantoprazole [Protonix] 40 mg PO AC-BRKFST #30 tablet. Rivaroxaban [Xarelto] 15 mg PO BID-W/MEALS #42 tab Rivaroxaban [Xarelto] 20 mg PO DAILY #67 tab oxyCODONE-APAP 10-325MG [Percocet 10-325 mg] 1 each PO Q6HR PRN #28 tab PRN Reason: Pain predniSONE 0 mg PO DIRECTED #30 tab Discharge Medication List Bisoprolol-Hctz 5-6.25 mg [Ziac 5-6.25 MG] 1 tab PO DAILY 12/12/16 [History] Sertraline HCl [Zoloft] 25 mg PO DAILY 12/12/16 [History] clonazePAM [KlonoPIN] 0.5 mg PO BID PRN 12/12/16 [History] Balsalazide Disodium [Colazal] 2,250 mg PO AC-TID 12/19/16 [History] Dextroamphetamine/Amphetamine [Adderall Xr] 20 mg PO QAM 01/07/17 [History] Levofloxacin [Levaquin] 500 mg PO HS #6 tab 01/10/17 [Rx] Pantoprazole [Protonix] 40 mg PO AC-BRKFST #30 tablet. 01/10/17 [Rx] Rivaroxaban [Xarelto] 15 mg PO BID-W/MEALS #42 tab 01/10/17 [Rx] Rivaroxaban [Xarelto] 20 mg PO DAILY #67 tab 01/10/17 [Rx] oxyCODONE-APAP 10-325MG [Percocet 10-325 mg] 1 each PO Q6HR PRN #28 tab [Rx] predniSONE 0 mg PO DIRECTED #30 tab 01/10/17 [Rx] Follow up Appointment(s)/Referral(s): Jamel Henderson MD [Primary Care Provider] - 1-2 days (FOLLOW UP 01-11-17 AT 2: 30PM WITH DR HENDERSON) Stacie Soto MD [STAFF PHYSICIAN] - 01/14/17 (Follow up on December AT 1:30PM) Patient Instructions/Handouts: Oxycodone/Acetaminophen (By mouth), Rivaroxaban (By mouth), Pulmonary Embolism (DC) Activity/Diet/Wound Care/Special Instructions: Xarelto 15 mg by mouth twice daily for 3 weeks, then Xaralto 20 mg by mouth daily for total of 3 months. Xarelto has been authorized by insurance, please machine pecan picker at [facility] pharmacy at discharge [phone] RETURN TO ER FOR WORSENING PAIN, SHORTNESS OF BREATH, DIFFICULTY BREATHING OR ANY PROBLEMS OR CONCERNS. NO DRIVING UNTIL OK'D BY M.D. AND REGULAR DIET TOLERATED, NO STRENUOUS ACTIVITY OR EXERCISE. Discharge Disposition: HOME SELF-CARE
[2017-01-10] MEDS: LEVOFLOXACIN 500 MG TAB PO SCH (21:29)
[2017-01-11] MEDS: SODIUM CHLORIDE 0.9% 1,000 ML IV SCH (01:11)
[2017-01-11] MEDS: oxyCODONE-APAP 10-325MG 1 EACH TAB PO PRN ×3 (01:17→10:49)
[2017-01-11] MEDS: BALSALAZIDE DISODIUM 750 MG CAPSULE PO SCH ×2 (07:05→13:07)
[2017-01-11] MEDS: BISOPROLOL-HCTZ 5-6.25 MG 1 EACH TAB PO SCH (07:05)
[2017-01-11] MEDS: IBUPROFEN 600 MG TAB PO SCH (07:05)
[2017-01-11] MEDS: RIVAROXABAN 15 MG TAB PO SCH (07:06)
[2017-01-11] MEDS: PANTOPRAZOLE 40 MG TABLET PO SCH (07:06)
[2017-01-11 08:20] VITALS: RESP 20
[2017-01-11] MEDS: clonazePAM 0.5 MG TAB PO PRN (10:49)
[2017-01-11 12:29] VITALS: BP 116/77; PULSE 80; TEMP 98.2
--- NOTE | 2017-01-11 13:43 | P.PN ---
Subjective Patient was seen in follow-up on on 01/10/2017: Patient is evaluated on the surgical unit. Patient continues to complain of right upper quadrant pain but states it's tolerable with oral pain medication. Denies chills, nausea, vomiting, or chest pain. Reports pain with deep inspiration. CTA chest with evidence of acute pulmonary embolism. Patient has been started on Xarelto. Awaiting prior authorization for Xarelto from [place] prior to discharge. Patient is being followed by pulmonology. Objective - Vital Signs Vital signs: Vital Signs Temp 98.2 F 01/11/17 11:25 Pulse 80 01/11/17 11:25 Resp 20 01/11/17 11:25 BP 116/77 01/11/17 11:25 Pulse Ox 96 01/11/17 11:25 Intake & Output 01/10/17 01/11/17 01/11/17 18:59 06:59 18:59 Intake Total 800 300 Balance 800 300 Weight 81.647 kg Intake: IV 800 Sodium Chloride 0.9% 1, 800 000 ml @ 100 mls/hr IV . Q10H [facility] Rx#:[id number] Oral 300 Other: Voiding Method Toilet # Voids 2 1 # Bowel Movements 1 - Exam GENERAL: Well-appearing, well-nourished and in no acute distress. HEAD: Atraumatic, normocephalic. NECK: Normal range of motion, supple without lymphadenopathy or JVD, no thyromegaly LUNGS: Breath sounds slightly coarse to auscultation bilaterally and equal. No wheezes rales or rhonchi. HEART: Regular rate and rhythm without murmurs, rubs or gallops.S1S2 Normal ABDOMEN: Soft, right upper quadrant tenderness, seems to be more pronounced over the rib cage, then the upper quadrant itself, normoactive bowel sounds. No guarding, no rebound. No masses appreciated. EXTREMITIES: Normal range of motion, no pitting or edema. No clubbing or cyanosis. NEUROLOGICAL: Cranial nerves II through XII grossly intact. Normal speech, normal gait. PSYCH: Normal mood, normal affect. SKIN: Warm, Dry, normal turgor, no rashes or lesions noted. - Labs CBC & Chem 7: 01/09/17 06:45 01/09/17 06:45 Assessment and Plan Plan: Impression and plan: Right upper quadrant pain with recent laparoscopic cholecystectomy 12/13/2016 suspect secondary to pleurisy secondary to acute right-sided pulmonary embolus with possible pneumonia, community acquired. Continue Percocet, continue Levaquin, continue Xarelto. History of ulcerative colitis: She will continue on her Colazal. Urinary tract infection, ruled out. Bipolar depression: Continue Klonopin when necessary. The above impression and plan have been discussed and directed by Dr. Medina. Ivanna MELTON acting as scribe for Dr. Medina.
--- NOTE | 2017-02-02 17:19 | P.CNPUL ---
History of Present Illness Consult date: 02/02/17 Reason for consult: chest pain History of present illness: 31-year-old female patient was post laparoscopic cholecystectomy that was performed more than 4 weeks ago. The patient was in the hospital last week for an acute pleuritic pain over the posterior chest area in the right upper quadrant. She was investigated further. Her d-dimer was modestly elevated. Doppler of the lower extremity was negative. CAT scan of the abdomen did not show any abnormalities within the intra-abdominal area or in the right upper quadrant. Ultimately the patient had a CTA of the chest that showed some reaction in the pleura involving the right lung along with some atelectatic changes. He had there was no convincing evidence that the patient had pulmonary embolism. Based on his findings, and based on her ongoing pleuritic chest pain, I decided to treat this patient with anticoagulation and she was given Xarelto and the plan was to give her a total of 3-6 months of anticoagulation suspecting a right lower lobe pulmonary embolism. Review of Systems Further review of system was done and the positive findings are almost above in history of present illness Past Medical History Past Medical History: GI Bleed, Hypertension, Syncope Additional Past Medical History / Comment(s): ulcerative colitis, anxiety, uti, History of Any Multi-Drug Resistant Organisms: None Reported Date of last positivie culture/infection: none MDRO Source:: none Past Surgical History: Adenoidectomy, Cholecystectomy Additional Past Surgical History / Comment(s): COLONOSCOPY- r/t colitis , [facility] REMOVED LT HAND Past Anesthesia/Blood Transfusion Reactions: No Reported Reaction Past Psychological History: ADD/ADHD, Anxiety Additional Psychological History / Comment(s): not presently taking medication for this Smoking Status: Never smoker Past Alcohol Use History: Occasional Additional Past Alcohol Use History / Comment(s): Patient states she is a lifelong nonsmoker. She states she drinks occ on weekends no more than 7 drinks for the week. She is also using multiple different prescription medications but no street drugs currently although she has tried crack in the past. She is currently unemployed.lives with her grandfather. Past Drug Use History: None Reported - Past Family History Father Family Medical History: No Reported History Additional Family Medical History / Comment(s): Father is 50 years of age and healthy. Mother History Unknown: Yes Family Medical History: No Reported History Additional Family Medical History / Comment(s): Mother is 50 years of age and healthy. Patient has 1 brother and 4 sisters that are healthy. Medications and Allergies Home Medications Medication Instructions Recorded Confirmed Type Bisoprolol-Hctz 5-6.25 mg [Ziac 1 tab PO DAILY 12/12/16 01/07/17 History 5-6.25 MG] Sertraline HCl [Zoloft] 25 mg PO DAILY 12/12/16 01/07/17 History clonazePAM [KlonoPIN] 0.5 mg PO BID PRN 12/12/16 01/07/17 History Balsalazide Disodium [Colazal] 2,250 mg PO AC-TID 12/19/16 01/07/17 History Dextroamphetamine/Amphetamine 20 mg PO QAM 01/07/17 01/07/17 History [Adderall Xr] Allergies Allergy/AdvReac Type Severity Reaction Status Date / Time No Known Allergies Allergy Verified 01/07/17 23:36 Physical Exam The patient appeared well nourished and normally developed. Vital signs as documented. Head exam is unremarkable. No scleral icterus or corneal arcus noted. Neck is without jugular venous distension, thyromegaly, or carotid bruits. Carotid upstrokes are brisk bilaterally. Lungs are clear to auscultation and percussion. Cardiac exam reveals the PMI to be normally sized and situated. Rhythm is regular. First and second heart sounds normal. No murmurs, rubs or gallops. Abdominal exam reveals normal bowel sounds, no masses , no organomegaly and no aortic enlargement. Extremities are nonedematous and both femoral and pedal pulses are normal. Results - Laboratory Findings CBC and BMP: 01/09/17 06:45 01/09/17 06:45 PT/INR, D-dimer D-Dimer 0.68 mg/L FEU (<0.60) H 01/08/17 12:55 Abnormal lab findings: Abnormal Labs 01/08/17 01/08/17 01/09/17 12:55 12:55 06:45 D-Dimer 0.68 H Sodium 136 L Amylase <30 L - Diagnostic Findings Chest x-ray: image reviewed CT scan - chest: image reviewed Assessment and Plan Plan: Assessment 1 pleuritic right-sided chest wall pain. Based on the CAT scan findings, unable to completely rule out the possibility of pulmonary embolism. Based on that, the patient will be given a total of 3 months of anticoagulation with Xarelto. I have discussed the findings with Dr. Greene from interventional radiology and our recommendation is to undergo graded this patient taken into account the CAT scan findings and the postsurgical state. 2 status post cholecystectomy. 3 depression 4 bipolar disorder 5 ulcerative colitis 6 previous history of GI bleed 7 hypertension Plan Pain control in regards to his pleuritic chest pain. Articulation with Xarelto as mentioned. We'll follow up this patient office. Surgical evaluation will also be done by Dr. Ga.
== END 2017-01-11 15:00 | disposition home or self-care (01) | DRG 175 ==
LOC: EC 17:08 → OBSVTOIN 22:03 → 3SUR 22:03 → 6PED 01-10 16:33
PROVIDERS: ADMIT Family Medicine; ATTEND Family Medicine
DX: I26.99 Other pulmonary embolism without acute cor pulmonale (principal); J18.9 Pneumonia, unspecified organism; K51.90 Ulcerative colitis, unspecified, without complications; I10 Essential (primary) hypertension; R09.1 Pleurisy; R11.0 Nausea; N83.201 Unspecified ovarian cyst, right side; N83.202 Unspecified ovarian cyst, left side; F41.9 Anxiety disorder, unspecified; F90.9 Attention-deficit hyperactivity disorder, unspecified type; F31.9 Bipolar disorder, unspecified; Z79.1 Long term (current) use of non-steroidal anti-inflammatories (NSAID); Z90.49 Acquired absence of other specified parts of digestive tract; Z79.899 Other long term (current) drug therapy; Z87.440 Personal history of urinary (tract) infections; Z87.19 Personal history of other diseases of the digestive system; Z56.0 Unemployment, unspecified; Z98.890 Other specified postprocedural states
CPT/HCPCS: 36415; 71020; 71260; 71275; 74000; 74177; 80048; 80053; 81001; 81025; 82150; 83690; 83735; 85025; 85379; 87086; 93970; 96361; 96365; 96372; 96375; 99285

== ENCOUNTER 2017-03-06 19:34 | Emergency (ER) | payer OTHER ==
[2017-03-06] MEDS ORDERED: KETOROLAC 30 MG/ML 1 ML VIAL IVP STA (20:44)
[2017-03-06] MEDS ORDERED: SODIUM CHLORIDE 0.9% 1,000 ML IV ONE (20:44)
[2017-03-06] MEDS ORDERED: MORPHINE SULFATE 4 MG/ML SYRINGE IVP STA ×2 (20:44→23:01)
--- NOTE | 2017-03-06 20:59 | ED ---
Abdominal Pain HPI - General Chief Complaint: Abdominal Pain Stated Complaint: Abd Pain, Diff breathing Source: patient Mode of arrival: ambulatory Limitations: no limitations - History of Present Illness Initial Comments: 31-year-old female with past medical history of GI bleed, kidney stones, HTN, ulcerative colitis, anxiety, UTIs, and recent cholecystectomy about [address] Dang presented for evaluation of sudden onset right upper quadrant abdominal pain that radiates around into her right upper back. She rates her pain at a 6 out of 10 and describes it as sharp with associated pleuritic right lower chest pain. She's never had these symptoms before although she states that they are similar to when she had her gallbladder taken out 2 months ago. She states that it could be similar to previous kidney stones but she is unsure. She has had no constipation or diarrhea and denies any dysuria or increased urinary frequency. There is no vaginal bleeding or discharge. - Related Data Home Medications Medication Instructions Recorded Confirmed Bisoprolol-Hctz 5-6.25 mg [Ziac 1 tab PO DAILY 12/12/16 03/06/17 5-6.25 MG] Sertraline HCl [Zoloft] 25 mg PO DAILY 12/12/16 03/06/17 clonazePAM [KlonoPIN] 0.5 mg PO BID PRN 12/12/16 03/06/17 Balsalazide Disodium [Colazal] 1,500 mg PO AC-TID 12/19/16 03/06/17 Dextroamphetamine/Amphetamine 20 mg PO QAM 01/07/17 03/06/17 [Adderall Xr] Previous Rx's Medication Instructions Recorded HYDROcodone/APAP 5-325MG [[place] 1 - 2 tab PO Q6HR PRN #14 tab 03/06/17 5-325] Ibuprofen [Motrin] 800 mg PO Q8HR PRN #20 tab 03/06/17 Ondansetron Odt [Zofran Odt] 4 mg PO Q8HR PRN #7 tab 03/06/17 Allergies Allergy/AdvReac Type Severity Reaction Status Date / Time No Known Allergies Allergy Verified 03/06/17 20:59 Review of Systems ROS Statement: Those systems with pertinent positive or pertinent negative responses have been documented in the HPI. ROS Other: All systems not noted in ROS Statement are negative. Constitutional: Denies: fever, chills Eyes: Denies: eye pain, eye discharge ENT: Denies: ear pain, throat pain Respiratory: Reports: other (Pain with deep inspiration). Denies: cough, dyspnea, wheezes, hemoptysis Cardiovascular: Denies: chest pain, palpitations, dyspnea on exertion, orthopnea , edema, syncope, paroxysmal nocturnal dyspnea Endocrine: Denies: fatigue, polydipsia, polyuria Gastrointestinal: Reports: abdominal pain, nausea. Denies: vomiting, diarrhea, constipation, hematemesis, melena, hematochezia Genitourinary: Denies: urgency, dysuria Musculoskeletal: Reports: back pain Skin: Denies: rash, lesions Neurological: Denies: headache, weakness Psychiatric: Denies: anxiety, depression Hematological/Lymphatic: Denies: easy bleeding, easy bruising Past Medical History Past Medical History: GI Bleed, Hypertension, Syncope Additional Past Medical History / Comment(s): ulcerative colitis, anxiety, uti, History of Any Multi-Drug Resistant Organisms: None Reported Date of last positivie culture/infection: none MDRO Source:: none Past Surgical History: Adenoidectomy, Cholecystectomy Additional Past Surgical History / Comment(s): COLONOSCOPY- r/t colitis , BIRTHMARK REMOVED LT HAND Past Anesthesia/Blood Transfusion Reactions: No Reported Reaction Past Psychological History: ADD/ADHD, Anxiety Additional Psychological History / Comment(s): not presently taking medication for this Smoking Status: Never smoker Past Alcohol Use History: Occasional Additional Past Alcohol Use History / Comment(s): Patient states she is a lifelong nonsmoker. She states she drinks occ on weekends no more than 7 drinks for the week. She is also using multiple different prescription medications but no street drugs currently although she has tried crack in the past. She is currently unemployed.lives with her grandfather. Past Drug Use History: None Reported - Past Family History Father Family Medical History: No Reported History Additional Family Medical History / Comment(s): Father is 50 years of age and healthy. Mother History Unknown: Yes Family Medical History: No Reported History Additional Family Medical History / Comment(s): Mother is 50 years of age and healthy. Patient has 1 brother and 4 sisters that are healthy. General Exam Limitations: no limitations General appearance: alert, in no apparent distress Head exam: Present: atraumatic, normocephalic, normal inspection Eye exam: Present: normal appearance, PERRL, EOMI. Absent: scleral icterus, conjunctival injection, periorbital swelling ENT exam: Present: normal exam, mucous membranes moist Neck exam: Present: normal inspection. Absent: tenderness, meningismus, lymphadenopathy Respiratory exam: Present: normal lung sounds bilaterally. Absent: respiratory distress, wheezes, rales, rhonchi, stridor Cardiovascular Exam: Present: regular rate, normal rhythm, normal heart sounds. Absent: systolic murmur, diastolic murmur, rubs, gallop, clicks GI/Abdominal exam: Present: soft, normal bowel sounds. Absent: distended, tenderness, guarding, rebound, rigid Rectal exam: Present: deferred Extremities exam: Present: normal inspection, full ROM, normal capillary refill. Absent: tenderness, pedal edema, joint swelling, calf tenderness Back exam: Present: full ROM, tenderness, CVA tenderness (R), paraspinal tenderness. Absent: muscle spasm, vertebral tenderness Neurological exam: Present: alert, oriented X3, CN II-XII intact Psychiatric exam: Present: normal affect, normal mood Skin exam: Present: warm, dry, intact, normal color. Absent: rash Course Vital Signs 03/06/17 03/06/17 03/06/17 19:42 21:12 23:34 Temperature 98.2 F 99.3 F 99.5 F Pulse Rate 100 98 90 Respiratory 20 18 18 Rate Blood Pressure 157/95 154/103 145/81 O2 Sat by Pulse 100 99 99 Oximetry Medical Decision Making - Medical Decision Making 31-year-old female with past medical history of ulcerative colitis, kidney stones, and recent cholecystectomy presented for evaluation of right upper quadrant abdominal pain that was of sudden onset today. On physical examination she has tenderness to the right upper quadrant and on the right lower chest. She indicates that the pain radiates around to her right back but not into her abdomen. It is worse with deep inspiration. Otherwise the remainder of her physical exam is benign. Although kidney stones highest on differential given that she recently had a cholecystectomy, concern for PE is also on the differential. We'll obtain labs, urinalysis, and provide pain control, Zofran, and IV fluids. If her workup should be negative at this time we will further workup for pulmonary embolism however at this time will avoid CAT scan until indication for IV contrast versus non-is more apparent. Labs revealed no significant abnormalities with the exception of the urine which showed multiple irregularities although this looks like a contaminated specimen. CT abdomen and pelvis showed multiple not certain small bilateral renal calculi and no signs of acute abdomen and pelvis. There were no adverse changes compared to old exam. Appendix is visualized and normal.the patient was reevaluated and had marketed improvement in her symptoms. She is informed of these results and through shared decision making it was determined that she would be discharged with instruction to follow-up with her primary care physician but return to this facility if her symptoms worsen or persist. The patient acknowledged an understanding of this information and agreed with this plan of care. - Lab Data Result diagrams: 03/06/17 20:43 03/06/17 20:43 Lab Results 03/06/17 03/06/17 03/06/17 Range/Units 20:43 20:43 20:43 WBC 8.8 (3.8-10.6) k/uL RBC 4.86 (3.80-5.40) m/uL Hgb 14.5 (11.4-16.0) gm/dL Hct 43.9 (34.0-46.0) % MCV 90.3 (80.0-100.0) fL MCH 29.9 (25.0-35.0) pg MCHC 33.1 (31.0-37.0) g/dL RDW 12.7 (11.5-15.5) % Plt Count 309 (150-450) k/uL Neutrophils % 76 % Lymphocytes % 13 % Monocytes % 8 % Eosinophils % 1 % Basophils % 1 % Neutrophils # 6.7 (1.3-7.7) k/uL Lymphocytes # 1.1 (1.0-4.8) k/uL Monocytes # 0.7 (0-1.0) k/uL Eosinophils # 0.1 (0-0.7) k/uL Basophils # 0.1 (0-0.2) k/uL Manual Slide Review Performed Large Platelets Present RBC Morphology Normal D-Dimer (<0.60) mg/L FEU Sodium 141 (137-145) mmol/L Potassium 4.2 (3.5-5.1) mmol/L Chloride 105 (98-107) mmol/L Carbon Dioxide 24 (22-30) mmol/L Anion Gap 12 mmol/L BUN 12 (7-17) mg/dL Creatinine 0.90 (0.52-1.04) mg/dL Est GFR (MDRD) Af Amer >60 (>60 ml/min/1.73 sqM) Est GFR (MDRD) Non-Af >60 (>60 ml/min/1.73 sqM) Glucose 92 (74-99) mg/dL Calcium 10.4 H (8.4-10.2) mg/dL Total Bilirubin 0.5 (0.2-1.3) mg/dL AST 31 (14-36) U/L ALT 34 (9-52) U/L Alkaline Phosphatase 89 (38-126) U/L Total Protein 7.9 (6.3-8.2) g/dL Albumin 4.5 (3.5-5.0) g/dL Lipase 117 (23-300) U/L Urine Color Urine Appearance (Clear) Urine pH (5.0-8.0) Ur Specific [place] (1.001-1.035) Urine Protein (Negative) Urine Glucose (UA) (Negative) Urine Ketones (Negative) Urine Blood (Negative) Urine Nitrite (Negative) Urine Bilirubin (Negative) Urine Urobilinogen (<2.0) mg/dL Ur Leukocyte Esterase (Negative) Urine RBC (0-5) /hpf Urine WBC (0-5) /hpf Ur Squamous Epith Cells (0-4) /hpf Urine Bacteria (None) /hpf Urine Mucus (None) /hpf Urine HCG, Qual Not Detected (Not Detectd) 03/06/17 03/06/17 Range/Units 20:43 20:43 WBC (3.8-10.6) k/uL RBC (3.80-5.40) m/uL Hgb (11.4-16.0) gm/dL Hct (34.0-46.0) % MCV (80.0-100.0) fL MCH (25.0-35.0) pg MCHC (31.0-37.0) g/dL RDW (11.5-15.5) % Plt Count (150-450) k/uL Neutrophils % % Lymphocytes % % Monocytes % % Eosinophils % % Basophils % % Neutrophils # (1.3-7.7) k/uL Lymphocytes # (1.0-4.8) k/uL Monocytes # (0-1.0) k/uL Eosinophils # (0-0.7) k/uL Basophils # (0-0.2) k/uL Manual Slide Review Large Platelets RBC Morphology D-Dimer 0.28 (<0.60) mg/L FEU Sodium (137-145) mmol/L Potassium (3.5-5.1) mmol/L Chloride (98-107) mmol/L Carbon Dioxide (22-30) mmol/L Anion Gap mmol/L BUN (7-17) mg/dL Creatinine (0.52-1.04) mg/dL Est GFR (MDRD) Af Amer (>60 ml/min/1.73 sqM) Est GFR (MDRD) Non-Af (>60 ml/min/1.73 sqM) Glucose (74-99) mg/dL Calcium (8.4-10.2) mg/dL Total Bilirubin (0.2-1.3) mg/dL AST (14-36) U/L ALT (9-52) U/L Alkaline Phosphatase (38-126) U/L Total Protein (6.3-8.2) g/dL Albumin (3.5-5.0) g/dL Lipase (23-300) U/L Urine Color Yellow Urine Appearance Cloudy H (Clear) Urine pH 5.5 (5.0-8.0) Ur Specific [place] 1.016 (1.001-1.035) Urine Protein Trace H (Negative) Urine Glucose (UA) 1+ H (Negative) Urine Ketones Negative (Negative) Urine Blood Negative (Negative) Urine Nitrite Negative (Negative) Urine Bilirubin Negative (Negative) Urine Urobilinogen <2.0 (<2.0) mg/dL Ur Leukocyte Esterase Large H (Negative) Urine RBC 10 H (0-5) /hpf Urine WBC 19 H (0-5) /hpf Ur Squamous Epith Cells 10 H (0-4) /hpf Urine Bacteria Few H (None) /hpf Urine Mucus Rare H (None) /hpf Urine HCG, Qual (Not Detectd) Disposition Clinical Impression: Abdominal pain, Nausea and vomiting Disposition: HOME SELF-CARE Condition: Stable Instructions: Abdominal Pain (ED) Additional Instructions: Please use medication as discussed. Please follow up with family doctor if symptoms have not improved over the next two days. Please return to the emergency room if your symptoms increase or worsen or for any other concerns. Prescriptions: HYDROcodone/APAP 5-325MG [[place] 5-325] 1 - 2 tab PO Q6HR PRN #14 tab PRN Reason: Analgesia Ibuprofen [Motrin] 800 mg PO Q8HR PRN #20 tab PRN Reason: Analgesia Ondansetron Odt [Zofran Odt] 4 mg PO Q8HR PRN #7 tab PRN Reason: Nausea Referrals: Jamel Clayton MD [Primary Care Provider] - 1-2 days Time of Disposition: 23:03
[2017-03-06 21:09] LABS: Appearance,Urine Cloudy (Clear); Bacteria,Urine Few /hpf; Bilirubin,Urine Negative (Negative); Glucose,Urine (UA) 1+ (Negative); Ketones,Urine Negative (Negative); Leukocyte Esterase,Urine Large (Negative); Mucus,Urine Rare /hpf; Nitrite,Urine Negative (Negative); PH, Urine 5.5 (5.0-8.0); Particle Count 8353; Protein,Urine Trace (Negative); RBC,Urine 10 /hpf (0-5); Specific Gravity,Urine 1.016 (1.001-1.035); Squamous Epithelial Cell,Urine 10 /hpf (0-4); UA Billing (MACRO vs. MICRO) MICRO; Urobilinogen,Urine <2.0 mg/dL (<2.0); WBC,Urine 19 /hpf (0-5)
[2017-03-06] MEDS ORDERED: ONDANSETRON 4 MG/2 ML VIAL IVP STA (21:12)
[2017-03-06 21:13] VITALS: RESP 18
[2017-03-06 21:13] LABS: ALT 34 U/L (9-52); AST 31 U/L (14-36); Alkaline Phosphatase 89 U/L (38-126); Anion Gap 12 mmol/L; Blood Urea Nitrogen 12 mg/dL (7-17); Calcium 10.4 mg/dL (8.4-10.2); Carbon Dioxide 24 mmol/L (22-30); Chloride 105 mmol/L (98-107); Glucose 92 mg/dL (74-99); Non-African American GFR(MDRD) >60 (>60 ml/min/1.73 sqM); Potassium 4.2 mmol/L (3.5-5.1); Sodium 141 mmol/L (137-145); Total Bilirubin 0.5 mg/dL (0.2-1.3); Total Protein 7.9 g/dL (6.3-8.2)
[2017-03-06 21:16] LABS: Basophils # (A) 0.1 k/uL (0-0.2); Basophils % (A) 1 %; CH 30.6; CHCM 34.1; Eosinophils # (A) 0.1 k/uL (0-0.7); Eosinophils % (A) 1 %; HCT 43.9 % (34.0-46.0); HDW 2.37; HGB 14.5 gm/dL (11.4-16.0); Luc # (Auto) 0.13; Luc % (Auto) 2; Lymphocytes # (A) 1.1 k/uL (1.0-4.8); Lymphocytes % (A) 13 %; MCH 29.9 pg (25.0-35.0); MCHC 33.1 g/dL (31.0-37.0); MCV 90.3 fL (80.0-100.0); Mean Platelet Volume 6.6; Monocytes # (A) 0.7 k/uL (0-1.0); Monocytes % (A) 8 %; Neutrophils # (A) 6.7 k/uL (1.3-7.7); Neutrophils % (A) 76 %; RBC 4.86 m/uL (3.80-5.40); RDW 12.7 % (11.5-15.5); WBC 8.8 k/uL (3.8-10.6); WBC (Perox) 7.91
[2017-03-06 21:29] LABS: Large Platelets Present; Manual Review Performed; RBC Morphology Normal
--- NOTE | 2017-03-06 22:06 | CT ---
EXAMINATION TYPE: CT abdomen pelvis wo con DATE OF EXAM: 03/06/2017 9:57 PM COMPARISON: 12/19/2016 HISTORY: Pain near cholecystectomy site. Sx x2 months ago. CT DLP: 802.0 mGycm Automated exposure control for dose reduction was used. TECHNIQUE: Helical acquisition of images was performed from the lung bases through the pelvis. FINDINGS: Lung bases are clear of consolidation. There is no pleural effusion. Liver spleen pancreas appear nor mal. There are clips from cholecystectomy. Bile ducts are not dilated. There is no adrenal mass. Ther e are some tiny calcifications in both kidneys that measure up to 3 mm. There is no hydronephrosis. U reters are not dilated. There is no retroperitoneal adenopathy. There is no ascites. Appendix appears normal. I see no intestinal wall thickening. There are no dilated loops. There is no sign of a pelvi c mass. Bladder distends smoothly. The bony structures are intact. IMPRESSION: MULTIPLE NONOBSTRUCTING SMALL BILATERAL RENAL CALCULI. NO SIGN OF ACUTE ABDOMEN AND PELVIS. NO ADVERS E CHANGE COMPARED TO OLD EXAM. NORMAL APPENDIX.
[2017-03-06 23:36] VITALS: PULSE 90; TEMP 99.5
[2017-03-06 23:37] VITALS: BP 145/81
== END 2017-03-06 23:42 | disposition home or self-care (01) ==
LOC: EC 19:34
DX: R10.11 Right upper quadrant pain (principal); R11.2 Nausea with vomiting, unspecified; R07.81 Pleurodynia; M54.9 Dorsalgia, unspecified; I10 Essential (primary) hypertension; F41.9 Anxiety disorder, unspecified; F90.9 Attention-deficit hyperactivity disorder, unspecified type; Z79.899 Other long term (current) drug therapy
CPT/HCPCS: 36415; 85379; 80053; 83690; 85025; 81001; 81025; 74176; 99284; 96374; 96375 ×2; 96376; 96361 ×2; J2270; J2405; J1885

== ENCOUNTER 2017-06-05 02:21 | Emergency (ER) | payer OTHER ==
--- NOTE | 2017-06-05 03:11 | ED ---
General Adult HPI - General Source: patient, RN notes reviewed Mode of arrival: ambulatory Limitations: no limitations <Beverly Bahena - Last Filed: 06/05/17 03:09> <Micky Pineda - Last Filed: 06/05/17 06:42> - General Chief complaint: Psychiatric Symptoms Stated complaint: Mental Health Time Seen by Provider: 06/05/17 02:40 - History of Present Illness Initial comments: 31-year-old female presents to the emergency department because she states that she had a rough night. Patient states that she got yelled at work she got up with her mom and her sister. Patient does not state to me that she had suicidal or homicidal ideation. Patient's is very hard to get a story from. She does not seem to want to reveal information. She states that she didn't come here for help and that is all she will say at this time. Patient denies any acute medical concerns.Patient denies any recent fever, chills, shortness of breath, chest pain, back pain, abdominal pain, nausea vomiting, numbness or tingling, dysuria or hematuria, constipation or diarrhea, headaches or visual changes, or any other current symptoms. (Bveerly Bahena) - Related Data Home Medications Medication Instructions Recorded Confirmed Bisoprolol-Hctz 5-6.25 mg [Ziac 1 tab PO DAILY 12/12/16 03/06/17 5-6.25 MG] Sertraline HCl [Zoloft] 25 mg PO DAILY 12/12/16 03/06/17 clonazePAM [KlonoPIN] 0.5 mg PO BID PRN 12/12/16 03/06/17 Balsalazide Disodium [Colazal] 1,500 mg PO AC-TID 12/19/16 03/06/17 Dextroamphetamine/Amphetamine 20 mg PO QAM 01/07/17 03/06/17 [Adderall Xr] Previous Rx's Medication Instructions Recorded HYDROcodone/APAP 5-325MG [[place] 1 - 2 tab PO Q6HR PRN #14 tab 03/06/17 5-325] Ibuprofen [Motrin] 800 mg PO Q8HR PRN #20 tab 03/06/17 Ondansetron Odt [Zofran Odt] 4 mg PO Q8HR PRN #7 tab 03/06/17 Allergies Allergy/AdvReac Type Severity Reaction Status Date / Time No Known Allergies Allergy Verified 06/05/17 02:32 Review of Systems ROS Other: All systems not noted in ROS Statement are negative. <Beverly Bahena - Last Filed: 06/05/17 03:09> ROS Other: All systems not noted in ROS Statement are negative. <EdwinMicky - Last Filed: 06/05/17 06:42> ROS Statement: Those systems with pertinent positive or pertinent negative responses have been documented in the HPI. Past Medical History Past Medical History: GI Bleed, Hypertension, Syncope Additional Past Medical History / Comment(s): ulcerative colitis, anxiety, uti, History of Any Multi-Drug Resistant Organisms: None Reported Date of last positivie culture/infection: none MDRO Source:: none Past Surgical History: Adenoidectomy, Cholecystectomy Additional Past Surgical History / Comment(s): COLONOSCOPY- r/t colitis , BIRTHMARK REMOVED LT HAND Past Anesthesia/Blood Transfusion Reactions: No Reported Reaction Past Psychological History: ADD/ADHD, Anxiety Smoking Status: Never smoker Past Alcohol Use History: Daily Past Drug Use History: None Reported - Past Family History Father Family Medical History: No Reported History Additional Family Medical History / Comment(s): Father is 50 years of age and healthy. Mother History Unknown: Yes Family Medical History: No Reported History Additional Family Medical History / Comment(s): Mother is 50 years of age and healthy. Patient has 1 brother and 4 sisters that are healthy. <Beverly Bahena - Last Filed: 06/05/17 03:09> General Exam Limitations: no limitations General appearance: alert, in no apparent distress ENT exam: Present: normal exam, mucous membranes moist Neck exam: Present: normal inspection. Absent: tenderness, meningismus, lymphadenopathy Respiratory exam: Present: normal lung sounds bilaterally. Absent: respiratory distress, wheezes, rales, rhonchi, stridor Cardiovascular Exam: Present: regular rate, normal rhythm, normal heart sounds. Absent: systolic murmur, diastolic murmur, rubs, gallop, clicks Neurological exam: Present: alert, oriented X3 Psychiatric exam: Present: depressed Skin exam: Present: warm, dry, intact, normal color. Absent: rash <Beverly Bahena - Last Filed: 06/05/17 03:09> Medical Decision Making <Beverly Bahena - Last Filed: 06/05/17 03:09> <Micky Pineda - Last Filed: 06/05/17 06:42> - Medical Decision Making 31-year-old female presents to the emergency department she claims that she needs help. At this time she does admit any suicidal or homicidal ideation. This tenderness patient is cleared from a acute medical emergencies and is cleared to be evaluated by psychiatry. (Beverly Bahena) - Lab Data Lab Results 06/05/17 Range/Units 02:50 Urine Opiates Screen Not Detected (NotDetected) Ur Oxycodone Screen Detected H (NotDetected) Urine Methadone Screen Not Detected (NotDetected) Ur Propoxyphene Screen Not Detected (NotDetected) Ur Barbiturates Screen Not Detected (NotDetected) U Tricyclic Antidepress Not Detected (NotDetected) Ur Phencyclidine Scrn Not Detected (NotDetected) Ur Amphetamines Screen Not Detected (NotDetected) U Methamphetamines Scrn Not Detected (NotDetected) U Benzodiazepines Scrn Detected H (NotDetected) Urine Cocaine Screen Detected H (NotDetected) U Marijuana (THC) Screen Not Detected (NotDetected) Disposition <Beverly Bahena - Last Filed: 06/05/17 03:09> <Micky Pineda - Last Filed: 06/05/17 06:42> Clinical Impression: Adjustment reaction Disposition: HOME SELF-CARE Condition: Fair Instructions: Mood Disorders (ED) Referrals: Jamel Clayton MD [Primary Care Provider] - 1-2 days
[2017-06-05 07:03] VITALS: BP 136/87; PULSE 87; RESP 20; TEMP 98.5
== END 2017-06-05 07:03 | disposition home or self-care (01) ==
LOC: EC 02:21
DX: F43.20 Adjustment disorder, unspecified (principal); I10 Essential (primary) hypertension; F90.9 Attention-deficit hyperactivity disorder, unspecified type; F41.9 Anxiety disorder, unspecified; Z79.899 Other long term (current) drug therapy
CPT/HCPCS: 99284 ×3; 82075; 96361; 96374; 96375; 36415; 80053; 82150; 83690; 85025; 81001; 81025; 80306; 74022; J2360; J2930; J1885

== ENCOUNTER 2017-06-05 07:09 | Emergency (ER) | payer OTHER ==
[2017-06-05] MEDS ORDERED: SODIUM CHLORIDE 0.9% 1,000 ML IV STA (07:33)
[2017-06-05] MEDS ORDERED: KETOROLAC 30 MG/ML 1 ML VIAL IVP STA (07:33)
--- NOTE | 2017-06-05 07:37 | ED ---
Abdominal Pain HPI - General Chief Complaint: Abdominal Pain Stated Complaint: abd pain Time Seen by Provider: 06/05/17 07:24 Source: patient, RN notes reviewed Mode of arrival: ambulatory Limitations: no limitations - History of Present Illness Initial Comments: This is a 31-year-old female history of a cholecystectomy done in November of this year who was just discharged after being evaluated by the psychiatric service and found have an adjustment disorder who comes back related she has had right upper quadrant pain intermittently since the gallbladder was removed. States it kind is sharp right upper quadrant increase with deep breathing and certain movements no fevers chills sweats she does "go to the bathroom a lot" no overt dysuria or hematuria. She also points to the right flank area states pain sometimes shoots to the right CVA region. She has no history kidney stones. Does have a history of colitis. No other symptoms at this time she also states the pain does increase with certain movements and twisting to the left. She also states she's not been able to eat or sleep really well because of the pain she believes is affecting her work. MD Complaint: abdominal pain - Related Data Home Medications Medication Instructions Recorded Confirmed Bisoprolol-Hctz 5-6.25 mg [Ziac 1 tab PO DAILY 12/12/16 03/06/17 5-6.25 MG] Sertraline HCl [Zoloft] 25 mg PO DAILY 12/12/16 03/06/17 clonazePAM [KlonoPIN] 0.5 mg PO BID PRN 12/12/16 03/06/17 Balsalazide Disodium [Colazal] 1,500 mg PO AC-TID 12/19/16 03/06/17 Dextroamphetamine/Amphetamine 20 mg PO QAM 01/07/17 03/06/17 [Adderall Xr] Previous Rx's Medication Instructions Recorded HYDROcodone/APAP 5-325MG [[place] 1 - 2 tab PO Q6HR PRN #14 tab 03/06/17 5-325] Ibuprofen [Motrin] 800 mg PO Q8HR PRN #20 tab 03/06/17 Ondansetron Odt [Zofran Odt] 4 mg PO Q8HR PRN #7 tab 03/06/17 Cyclobenzaprine [Flexeril] 10 mg PO TID #14 tab 06/05/17 Ibuprofen 800 mg PO Q6HR PRN #20 tablet 06/05/17 Allergies Allergy/AdvReac Type Severity Reaction Status Date / Time No Known Allergies Allergy Verified 06/05/17 07:18 Review of Systems ROS Statement: Those systems with pertinent positive or pertinent negative responses have been documented in the HPI. ROS Other: All systems not noted in ROS Statement are negative. Past Medical History Past Medical History: GI Bleed, Hypertension, Syncope Additional Past Medical History / Comment(s): ulcerative colitis, anxiety, uti, History of Any Multi-Drug Resistant Organisms: None Reported Date of last positivie culture/infection: none MDRO Source:: none Past Surgical History: Adenoidectomy, Cholecystectomy Additional Past Surgical History / Comment(s): COLONOSCOPY- r/t colitis , [facility] REMOVED LT HAND Past Anesthesia/Blood Transfusion Reactions: No Reported Reaction Past Psychological History: ADD/ADHD, Anxiety Smoking Status: Never smoker Past Alcohol Use History: Daily Past Drug Use History: None Reported - Past Family History Father Family Medical History: No Reported History Additional Family Medical History / Comment(s): Father is 50 years of age and healthy. Mother History Unknown: Yes Family Medical History: No Reported History Additional Family Medical History / Comment(s): Mother is 50 years of age and healthy. Patient has 1 brother and 4 sisters that are healthy. General Exam - General Exam Comments Initial Comments: This is a well-developed well-nourished awake alert oriented 3 female Limitations: no limitations General appearance: alert, in no apparent distress Head exam: Present: atraumatic, normocephalic, normal inspection Eye exam: Present: normal appearance, PERRL, EOMI. Absent: scleral icterus, conjunctival injection, periorbital swelling ENT exam: Present: normal exam, mucous membranes moist Neck exam: Present: normal inspection. Absent: tenderness, meningismus, lymphadenopathy Respiratory exam: Present: normal lung sounds bilaterally, chest wall tenderness (Tenderness palpation over the right anterior and lateral intercostal muscles no step-off no crepitation no rash). Absent: respiratory distress, wheezes, rales, rhonchi, stridor Cardiovascular Exam: Present: regular rate, normal rhythm, normal heart sounds. Absent: systolic murmur, diastolic murmur, rubs, gallop, clicks GI/Abdominal exam: Present: soft, tenderness (Mild right upper quadrant and flank tenderness to palpation with no guarding rebound masses or bruits the surgical port sites appear to be healing well. No evidence of herniation.), normal bowel sounds. Absent: distended, guarding, rebound, rigid Rectal exam: Present: deferred Extremities exam: Present: normal inspection, full ROM, normal capillary refill. Absent: tenderness, pedal edema, joint swelling, calf tenderness Back exam: Present: normal inspection Neurological exam: Present: alert, oriented X3, CN II-XII intact Psychiatric exam: Present: normal affect, normal mood Skin exam: Present: warm, dry, intact, normal color. Absent: rash Course Vital Signs 06/05/17 06/05/17 06/05/17 07:16 08:17 08:59 Temperature 98.1 F 97.2 F L Pulse Rate 90 73 73 Respiratory 20 18 20 Rate Blood Pressure 143/94 142/90 144/104 O2 Sat by Pulse 100 99 99 Oximetry Medical Decision Making - Medical Decision Making Patient was reexamined the presentation is consistent with musculoskeletal pain. Placed on appropriate medication she is a follow-up with her doctor return when necessary - Lab Data Result diagrams: 06/05/17 07:50 06/05/17 07:50 Lab Results 06/05/17 06/05/17 06/05/17 Range/Units 07:50 07:50 07:50 WBC 6.8 (3.8-10.6) k/uL RBC 4.23 (3.80-5.40) m/uL Hgb 13.1 (11.4-16.0) gm/dL Hct 39.1 (34.0-46.0) % MCV 92.6 (80.0-100.0) fL MCH 31.1 (25.0-35.0) pg MCHC 33.6 (31.0-37.0) g/dL RDW 12.7 (11.5-15.5) % Plt Count 295 (150-450) k/uL Neutrophils % 62 % Lymphocytes % 25 % Monocytes % 7 % Eosinophils % 3 % Basophils % 0 % Neutrophils # 4.2 (1.3-7.7) k/uL Lymphocytes # 1.7 (1.0-4.8) k/uL Monocytes # 0.5 (0-1.0) k/uL Eosinophils # 0.2 (0-0.7) k/uL Basophils # 0.0 (0-0.2) k/uL Sodium 141 (137-145) mmol/L Potassium 3.5 (3.5-5.1) mmol/L Chloride 106 (98-107) mmol/L Carbon Dioxide 26 (22-30) mmol/L Anion Gap 9 mmol/L BUN 8 (7-17) mg/dL Creatinine 0.90 (0.52-1.04) mg/dL Est GFR (MDRD) Af Amer >60 (>60 ml/min/1.73 sqM) Est GFR (MDRD) Non-Af >60 (>60 ml/min/1.73 sqM) Glucose 97 (74-99) mg/dL Calcium 9.3 (8.4-10.2) mg/dL Total Bilirubin 0.3 (0.2-1.3) mg/dL AST 47 H (14-36) U/L ALT 41 (9-52) U/L Alkaline Phosphatase 64 (38-126) U/L Total Protein 6.5 (6.3-8.2) g/dL Albumin 3.8 (3.5-5.0) g/dL Amylase <30 L (30-110) U/L Lipase 68 (23-300) U/L Urine Color Urine Appearance (Clear) Urine pH (5.0-8.0) Ur Specific [place] (1.001-1.035) Urine Protein (Negative) Urine Glucose (UA) (Negative) Urine Ketones (Negative) Urine Blood (Negative) Urine Nitrite (Negative) Urine Bilirubin (Negative) Urine Urobilinogen (<2.0) mg/dL Ur Leukocyte Esterase (Negative) Urine RBC (0-5) /hpf Urine WBC (0-5) /hpf Ur Squamous Epith Cells (0-4) /hpf Urine Bacteria (None) /hpf Urine Mucus (None) /hpf Urine Yeast (Budding) (None) /hpf Urine HCG, Qual Not Detected (Not Detectd) 06/05/17 Range/Units 07:50 WBC (3.8-10.6) k/uL RBC (3.80-5.40) m/uL Hgb (11.4-16.0) gm/dL Hct (34.0-46.0) % MCV (80.0-100.0) fL MCH (25.0-35.0) pg MCHC (31.0-37.0) g/dL RDW (11.5-15.5) % Plt Count (150-450) k/uL Neutrophils % % Lymphocytes % % Monocytes % % Eosinophils % % Basophils % % Neutrophils # (1.3-7.7) k/uL Lymphocytes # (1.0-4.8) k/uL Monocytes # (0-1.0) k/uL Eosinophils # (0-0.7) k/uL Basophils # (0-0.2) k/uL Sodium (137-145) mmol/L Potassium (3.5-5.1) mmol/L Chloride (98-107) mmol/L Carbon Dioxide (22-30) mmol/L Anion Gap mmol/L BUN (7-17) mg/dL Creatinine (0.52-1.04) mg/dL Est GFR (MDRD) Af Amer (>60 ml/min/1.73 sqM) Est GFR (MDRD) Non-Af (>60 ml/min/1.73 sqM) Glucose (74-99) mg/dL Calcium (8.4-10.2) mg/dL Total Bilirubin (0.2-1.3) mg/dL AST (14-36) U/L ALT (9-52) U/L Alkaline Phosphatase (38-126) U/L Total Protein (6.3-8.2) g/dL Albumin (3.5-5.0) g/dL Amylase (30-110) U/L Lipase (23-300) U/L Urine Color Yellow Urine Appearance Cloudy H (Clear) Urine pH 6.0 (5.0-8.0) Ur Specific [place] 1.013 (1.001-1.035) Urine Protein Trace H (Negative) Urine Glucose (UA) Negative (Negative) Urine Ketones Negative (Negative) Urine Blood Negative (Negative) Urine Nitrite Negative (Negative) Urine Bilirubin Negative (Negative) Urine Urobilinogen <2.0 (<2.0) mg/dL Ur Leukocyte Esterase Large H (Negative) Urine RBC 10 H (0-5) /hpf Urine WBC 8 H (0-5) /hpf Ur Squamous Epith Cells 21 H (0-4) /hpf Urine Bacteria Rare H (None) /hpf Urine Mucus Occasional H (None) /hpf Urine Yeast (Budding) Few H (None) /hpf Urine HCG, Qual (Not Detectd) - Radiology Data Radiology results: report reviewed (I did review the imaging and reports no acute findings.), image reviewed Disposition Clinical Impression: Musculoskeletal pain, Chest wall pain, Abdominal wall pain Disposition: HOME SELF-CARE Condition: Good Instructions: Costochondritis (ED), Musculoskeletal Pain (ED) Prescriptions: Cyclobenzaprine [Flexeril] 10 mg PO TID #14 tab Ibuprofen 800 mg PO Q6HR PRN #20 tablet PRN Reason: Pain Referrals: Jamel Clayton MD [Primary Care Provider] - 1-2 days Decision Time: 09:00
[2017-06-05 08:07] LABS: Appearance,Urine Cloudy (Clear); Bacteria,Urine Rare /hpf; Bilirubin,Urine Negative (Negative); Glucose,Urine (UA) Negative (Negative); Ketones,Urine Negative (Negative); Leukocyte Esterase,Urine Large (Negative); Mucus,Urine Occasional /hpf; Nitrite,Urine Negative (Negative); Particle Count 14829; Protein,Urine Trace (Negative); RBC,Urine 10 /hpf (0-5); Specific Gravity,Urine 1.013 (1.001-1.035); Squamous Epithelial Cell,Urine 21 /hpf (0-4); UA Billing (MACRO vs. MICRO) MICRO; Urobilinogen,Urine <2.0 mg/dL (<2.0); WBC,Urine 8 /hpf (0-5)
[2017-06-05 08:08] LABS: Basophils % (A) 0 %; CH 31.3; CHCM 33.9; Eosinophils # (A) 0.2 k/uL (0-0.7); Eosinophils % (A) 3 %; HCT 39.1 % (34.0-46.0); HDW 2.43; HGB 13.1 gm/dL (11.4-16.0); Luc # (Auto) 0.15; Luc % (Auto) 2; Lymphocytes # (A) 1.7 k/uL (1.0-4.8); Lymphocytes % (A) 25 %; MCH 31.1 pg (25.0-35.0); MCHC 33.6 g/dL (31.0-37.0); MCV 92.6 fL (80.0-100.0); Mean Platelet Volume 7.1; Monocytes # (A) 0.5 k/uL (0-1.0); Monocytes % (A) 7 %; Neutrophils # (A) 4.2 k/uL (1.3-7.7); Neutrophils % (A) 62 %; RBC 4.23 m/uL (3.80-5.40); RDW 12.7 % (11.5-15.5); WBC 6.8 k/uL (3.8-10.6); WBC (Perox) 6.99
[2017-06-05 08:20] VITALS: PULSE 73
[2017-06-05 08:29] LABS: ALT 41 U/L (9-52); AST 47 U/L (14-36); Alkaline Phosphatase 64 U/L (38-126); Amylase <30 U/L (30-110); Anion Gap 9 mmol/L; Blood Urea Nitrogen 8 mg/dL (7-17); Calcium 9.3 mg/dL (8.4-10.2); Carbon Dioxide 26 mmol/L (22-30); Chloride 106 mmol/L (98-107); Glucose 97 mg/dL (74-99); Non-African American GFR(MDRD) >60 (>60 ml/min/1.73 sqM); Potassium 3.5 mmol/L (3.5-5.1); Sodium 141 mmol/L (137-145); Total Bilirubin 0.3 mg/dL (0.2-1.3); Total Protein 6.5 g/dL (6.3-8.2)
[2017-06-05] MEDS ORDERED: methylPREDNISolone SOD SUCCI 125 MG/2 ML VIAL IV STA (08:49)
[2017-06-05] MEDS ORDERED: ORPHENADRINE 30 MG/ML 2 ML VIAL IVP STA (08:49)
--- NOTE | 2017-06-05 09:01 | XR ---
EXAMINATION TYPE: XR abdomen acute w cxr DATE OF EXAM: 06/05/2017 COMPARISON: NONE HISTORY: 31 year-old female right upper quadrant pain TECHNIQUE: Supine, upright, and left side down lateral decubitus views of the abdomen are obtained. FINDINGS: Frontal view of the chest shows normal heart size, aorta, and pulmonary vasculature. Some hazy lower lung densities related to overlying soft tissue. No consolidation or pleural effusion. No evidence for free intraperitoneal air. Cholecystectomy clips. No dilated small bowel or air-fluid levels. Scattered air and stool seen throughout the colon extending distally. There is mild overall stool bur den. No suspicious calcifications seen. IMPRESSION: 1. No acute cardiopulmonary process. 2. No evidence for free air or bowel obstruction.
[2017-06-05 09:02] VITALS: BP 144/104; RESP 20; TEMP 97.2
== END 2017-06-05 09:26 | disposition home or self-care (01) ==
LOC: EC 07:09
DX: M79.1 Myalgia (principal); R10.11 Right upper quadrant pain; R07.89 Other chest pain; I10 Essential (primary) hypertension; K51.90 Ulcerative colitis, unspecified, without complications; F41.9 Anxiety disorder, unspecified; F90.9 Attention-deficit hyperactivity disorder, unspecified type; Z79.899 Other long term (current) drug therapy; Z87.19 Personal history of other diseases of the digestive system; Z90.49 Acquired absence of other specified parts of digestive tract
CPT/HCPCS: 99284; 96374; 96375 ×2; 96361 ×2; 36415; 80053; 82150; 83690; 85025; 81001; 81025; 74022; J2360; J2930; J1885

== ENCOUNTER 2017-07-17 00:45 | Emergency (ER) | payer OTHER ==
[2017-07-17] MEDS ORDERED: chlordiazePOXIDE 25 MG CAP PO STA (01:30)
[2017-07-17 01:53] VITALS: TEMP 98.4
[2017-07-17] MEDS ORDERED: SODIUM CHLORIDE 0.9% 2,000 ML IV ONE (02:58)
[2017-07-17] MEDS ORDERED: LORazepam 2 MG/ML SYRINGE IV STA (02:58)
[2017-07-17] MEDS ORDERED: THIAMINE 100 MG TAB PO STA (03:18)
[2017-07-17] MEDS ORDERED: MAG HYDROX/AL HYDROX/SIMETH 30 ML, HYOSCYAMINE ELIXIR 10 ML, CIMETIDINE HCL 300 MG, LID... PO STA ×4 (05:25)
[2017-07-17] MEDS ORDERED: SODIUM CHLORIDE 0.9% 1,000 ML IV ONE (05:26)
[2017-07-17 06:08] LABS: Basophils % (A) 0 %; CH 32.5; CHCM 33.8; Eosinophils # (A) 0.1 k/uL (0-0.7); Eosinophils % (A) 1 %; HCT 38.8 % (34.0-46.0); HDW 2.28; HGB 12.7 gm/dL (11.4-16.0); Luc # (Auto) 0.09; Luc % (Auto) 1; Lymphocytes # (A) 1.9 k/uL (1.0-4.8); Lymphocytes % (A) 20 %; MCH 31.7 pg (25.0-35.0); MCHC 32.8 g/dL (31.0-37.0); MCV 96.5 fL (80.0-100.0); Mean Platelet Volume 7.5; Monocytes # (A) 0.7 k/uL (0-1.0); Monocytes % (A) 7 %; Neutrophils # (A) 6.6 k/uL (1.3-7.7); Neutrophils % (A) 70 %; RBC 4.02 m/uL (3.80-5.40); RDW 13.6 % (11.5-15.5); WBC 9.4 k/uL (3.8-10.6); WBC (Perox) 9.98
--- NOTE | 2017-07-17 06:10 | ED ---
Alcohol HPI - General Chief Complaint: Alcohol Stated Complaint: alcohol withdrawal Time Seen by Provider: 07/17/17 01:15 Source: patient Mode of arrival: ambulatory Limitations: no limitations - History of Present Illness Initial Comments: This patient is a 31-year-old woman who presents with the complaint that she feels she is addicted alcohol. The patient states that she usually drinks a number of 24 ounce beers per day as well as a couple of shooters. She states that when she stops she feels very shaky and anxious. This leads her to drinking again on the following day. She has been following this pattern for number of months, and is wondering about receiving help to stop drinking. MD Complaint: alcohol withdrawal Last Drink: just [employer] Time Since Last Drink: 2 -: hour(s) Previous Visits for Alcohol Intoxication?: No Recent Trauma: No Associated Symptoms: diaphoresis, tremors Treatments Prior to Arrival: none Chronic Alcohol Use: Yes - Related Data Home Medications Medication Instructions Recorded Confirmed Bisoprolol-Hctz 5-6.25 mg [Ziac 1 tab PO DAILY 12/12/16 07/17/17 5-6.25 MG] Balsalazide Disodium [Colazal] 1,500 mg PO AC-TID 12/19/16 07/17/17 Previous Rx's Medication Instructions Recorded LORazepam [Ativan] 2 mg PO TID PRN #15 tab 07/17/17 Allergies Allergy/AdvReac Type Severity Reaction Status Date / Time No Known Allergies Allergy Verified 06/05/17 07:18 Review of Systems ROS Statement: Those systems with pertinent positive or pertinent negative responses have been documented in the HPI. ROS Other: All systems not noted in ROS Statement are negative. Constitutional: Denies: fever, chills Eyes: Denies: vision change Respiratory: Denies: cough, dyspnea Cardiovascular: Reports: palpitations. Denies: chest pain, edema, syncope Gastrointestinal: Reports: nausea. Denies: abdominal pain, vomiting, diarrhea Musculoskeletal: Denies: back pain Skin: Denies: rash Neurological: Denies: headache, weakness, numbness Past Medical History Past Medical History: GI Bleed, Hypertension, Syncope Additional Past Medical History / Comment(s): ulcerative colitis, anxiety, uti, History of Any Multi-Drug Resistant Organisms: None Reported Date of last positivie culture/infection: none MDRO Source:: none Past Surgical History: Adenoidectomy, Cholecystectomy Additional Past Surgical History / Comment(s): COLONOSCOPY- r/t colitis , [facility] REMOVED LT HAND Past Anesthesia/Blood Transfusion Reactions: No Reported Reaction Past Psychological History: ADD/ADHD, Anxiety Smoking Status: Never smoker Past Alcohol Use History: Abuse Past Drug Use History: Cocaine, Methamphetamine - Past Family History Father Family Medical History: No Reported History Additional Family Medical History / Comment(s): Father is 50 years of age and healthy. Mother History Unknown: Yes Family Medical History: No Reported History Additional Family Medical History / Comment(s): Mother is 50 years of age and healthy. Patient has 1 brother and 4 sisters that are healthy. General Exam Limitations: no limitations General appearance: alert, anxious Head exam: Present: atraumatic, normocephalic Eye exam: Present: normal appearance. Absent: scleral icterus, conjunctival injection ENT exam: Present: mucous membranes dry Neck exam: Present: normal inspection Respiratory exam: Present: normal lung sounds bilaterally. Absent: respiratory distress, wheezes, rales, rhonchi, stridor Cardiovascular Exam: Present: normal rhythm, tachycardia, systolic murmur (Rate 106 systolic ejection murmur). Absent: diastolic murmur, rubs, gallop GI/Abdominal exam: Present: soft. Absent: distended, tenderness, guarding, rebound, organomegaly, mass, pulsatile mass, hernia Extremities exam: Present: normal inspection, normal capillary refill. Absent: pedal edema, calf tenderness Back exam: Present: normal inspection. Absent: CVA tenderness (R), CVA tenderness (L) Neurological exam: Present: alert. Absent: motor sensory deficit Psychiatric exam: Present: anxious. Absent: homicidal ideation, suicidal ideation Skin exam: Present: warm, dry, intact, normal color. Absent: rash Course Vital Signs 07/17/17 07/17/17 07/17/17 00:49 01:48 02:52 Temperature 98.9 F 98.4 F Pulse Rate 127 H 133 H 127 H Respiratory 20 16 18 Rate Blood Pressure 191/129 162/109 137/95 O2 Sat by Pulse 98 95 97 Oximetry 07/17/17 05:22 Temperature Pulse Rate 114 H Respiratory 18 Rate Blood Pressure 158/88 O2 Sat by Pulse 97 Oximetry Medical Decision Making - Lab Data Result diagrams: 07/17/17 05:51 07/17/17 05:51 Lab Results 07/17/17 07/17/17 Range/Units 05:51 05:51 WBC 9.4 (3.8-10.6) k/uL RBC 4.02 (3.80-5.40) m/uL Hgb 12.7 (11.4-16.0) gm/dL Hct 38.8 (34.0-46.0) % MCV 96.5 (80.0-100.0) fL MCH 31.7 (25.0-35.0) pg MCHC 32.8 (31.0-37.0) g/dL RDW 13.6 (11.5-15.5) % Plt Count 277 (150-450) k/uL Neutrophils % 70 % Lymphocytes % 20 % Monocytes % 7 % Eosinophils % 1 % Basophils % 0 % Neutrophils # 6.6 (1.3-7.7) k/uL Lymphocytes # 1.9 (1.0-4.8) k/uL Monocytes # 0.7 (0-1.0) k/uL Eosinophils # 0.1 (0-0.7) k/uL Basophils # 0.0 (0-0.2) k/uL Sodium 137 (137-145) mmol/L Potassium 3.3 L (3.5-5.1) mmol/L Chloride 107 (98-107) mmol/L Carbon Dioxide 20 L (22-30) mmol/L Anion Gap 10 mmol/L BUN 7 (7-17) mg/dL Creatinine 0.80 (0.52-1.04) mg/dL Est GFR (MDRD) Af Amer >60 (>60 ml/min/1.73 sqM) Est GFR (MDRD) Non-Af >60 (>60 ml/min/1.73 sqM) Glucose 109 H (74-99) mg/dL Calcium 8.6 (8.4-10.2) mg/dL Total Bilirubin 0.6 (0.2-1.3) mg/dL AST 39 H (14-36) U/L ALT 49 (9-52) U/L Alkaline Phosphatase 80 (38-126) U/L Total Protein 6.6 (6.3-8.2) g/dL Albumin 3.8 (3.5-5.0) g/dL Amylase <30 L (30-110) U/L Lipase 66 (23-300) U/L - EKG Data -: EKG Interpreted by Me EKG shows normal: sinus rhythm, axis (Normal), intervals (Normal), QRS complexes (Normal), ST-T waves (Normal) Rate: tachycardia (Rate approximately 119 bpm) Disposition Clinical Impression: Alcohol withdrawal syndrome Disposition: HOME SELF-CARE Condition: Fair Instructions: Alcohol Withdrawal (ED) Prescriptions: LORazepam [Ativan] 2 mg PO TID PRN #15 tab PRN Reason: Agitation Referrals: Jamel Clayton MD [Primary Care Provider] - 1-2 days
[2017-07-17 06:19] LABS: ALT 49 U/L (9-52); AST 39 U/L (14-36); Alkaline Phosphatase 80 U/L (38-126); Amylase <30 U/L (30-110); Anion Gap 10 mmol/L; Blood Urea Nitrogen 7 mg/dL (7-17); Calcium 8.6 mg/dL (8.4-10.2); Carbon Dioxide 20 mmol/L (22-30); Chloride 107 mmol/L (98-107); Glucose 109 mg/dL (74-99); Non-African American GFR(MDRD) >60 (>60 ml/min/1.73 sqM); Potassium 3.3 mmol/L (3.5-5.1); Sodium 137 mmol/L (137-145); Total Bilirubin 0.6 mg/dL (0.2-1.3); Total Protein 6.6 g/dL (6.3-8.2)
[2017-07-17 06:33] VITALS: BP 161/99; PULSE 103; RESP 16
== END 2017-07-17 06:56 | disposition home or self-care (01) ==
LOC: EC 00:45
DX: F10.230 Alcohol dependence with withdrawal, uncomplicated (principal); R00.0 Tachycardia, unspecified; I10 Essential (primary) hypertension; F41.9 Anxiety disorder, unspecified; Z79.899 Other long term (current) drug therapy
CPT/HCPCS: 36415; 93005; 80053; 82150; 83690; 85025; 99285; 96374; 96361 ×3; J2060